=== PATIENT | male | born 1990 ===

== ENCOUNTER 2021-06-18 16:21 | Inpatient (IN) | payer OTHER ==
[2021-06-18] MEDS ORDERED: Sodium Chloride 0.9% 1,000 ML IV ONE ×2 (17:03→19:40)
[2021-06-18] MEDS ORDERED: cefTRIAXone 1 GM in Premix Bag 1 BAG IV ONE (17:07)
[2021-06-18] MEDS ORDERED: Piperacillin/Tazobactam 3.375 GM in Sodium Chloride 0.9% 50 ML IV ONE (17:13)
--- NOTE | 2021-06-18 17:16 | EDM.PDOC ---
ED HPI GENERAL MEDICAL PROBLEM - General Chief Complaint: Lower Extremity Injury/Pain Stated Complaint: SWOLLEN KNEE Time Seen by Provider: 06/18/21 16:23 right knee Pain Score (Numeric/FACES): 7 - Related Data Allergies Allergy/AdvReac Type Severity Reaction Status Date / Time No Known Allergies Allergy Verified 06/18/21 21:56 Home Meds: Home Meds . [No Known Home Meds] 06/18/21 [History] Past Medical History - Past Health History Medical/Surgical History: Denies Medical/Surgical History Review of Systems - Review of Systems Review Of Systems: See Below ED EXAM, GENERAL - Physical Exam Exam: See Below Course - Vital Signs Text/Narrative:: Also evaluated by myself, Dr. Schroeder. Patient with evidence of cellulitis to the right leg. Is warm erythematous tender. 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 This certainly could represent an infected bursitis. When I ranged the knee however, patient has good ability to move and range his knee without significant pain and there is an not high suspicion at this time for septic joint. Last Recorded V/S: Last Vital Signs Temp 36.3 C 06/21/21 03:00 Pulse 71 06/21/21 03:00 Resp 16 06/21/21 03:00 BP 115/60 06/21/21 03:00 Pulse Ox 97 06/21/21 03:00 - Orders/Labs/Meds Orders: Medication Orders Acetaminophen (Acetaminophen 325 Mg Tab) 650 mg PO Q6H PRN PRN Reason: Pain (mild 1-3) Last Admin: 06/19/21 23:50 Dose: 650 mg Documented by: Admin: 06/19/21 11:42 Dose: 650 mg Documented by: Admin: 06/19/21 03:13 Dose: 650 mg Documented by: ENRIQUE Enoxaparin Sodium (Enoxaparin 40 Mg/0.4 Ml Syringe) 40 mg SUBCUT Q24H [facility] Last Admin: 06/20/21 23:34 Dose: 40 mg Documented by: Admin: 06/19/21 23:51 Dose: 40 mg Documented by: Admin: 06/18/21 23:58 Dose: 40 mg Documented by: ENRIQUE Piperacillin Sod/Tazobactam (Sod 3.375 gm/ Sodium Chloride) 50 mls @ 100 mls/hr IV Q6H [facility]BERTO Last Admin: 06/21/21 06:36 Dose: 100 mls/hr Documented by: Infusion: 06/21/21 00:15 Dose: 100 mls/hr Documented by: Admin: 06/20/21 23:45 Dose: 100 mls/hr Documented by: Infusion: 06/20/21 18:46 Dose: 100 mls/hr Documented by: Admin: 06/20/21 18:16 Dose: 100 mls/hr Documented by: Infusion: 06/20/21 11:56 Dose: 100 mls/hr Documented by: Admin: 06/20/21 11:26 Dose: 100 mls/hr Documented by: Infusion: 06/20/21 06:48 Dose: 100 mls/hr Documented by: Admin: 06/20/21 06:18 Dose: 100 mls/hr Documented by: Infusion: 06/20/21 00:24 Dose: 100 mls/hr Documented by: Admin: 06/19/21 23:54 Dose: 100 mls/hr Documented by: Infusion: 06/19/21 18:27 Dose: 100 mls/hr Documented by: Admin: 06/19/21 17:57 Dose: 100 mls/hr Documented by: Infusion: 06/19/21 12:39 Dose: 100 mls/hr Documented by: Admin: 06/19/21 12:09 Dose: 100 mls/hr Documented by: Infusion: 06/19/21 06:01 Dose: 100 mls/hr Documented by: Admin: 06/19/21 05:31 Dose: 100 mls/hr Documented by: Infusion: 06/19/21 00:23 Dose: 100 mls/hr Documented by: Admin: 06/18/21 23:53 Dose: 100 mls/hr Documented by: ENRIQUE Vancomycin HCl 1.25 gm/ Sodium (Chloride) 250 mls @ 250 mls/hr IV Q8H ALBERTO Last Admin: 06/21/21 02:53 Dose: 250 mls/hr Documented by: Infusion: 06/20/21 19:59 Dose: 250 mls/hr Documented by: Admin: 06/20/21 18:59 Dose: 250 mls/hr Documented by: Infusion: 06/20/21 10:52 Dose: 250 mls/hr Documented by: Admin: 06/20/21 09:52 Dose: 250 mls/hr Documented by: Infusion: 06/20/21 03:04 Dose: 250 mls/hr Documented by: Admin: 06/20/21 02:04 Dose: 250 mls/hr Documented by: Infusion: 06/19/21 19:34 Dose: 250 mls/hr Documented by: Admin: 06/19/21 18:34 Dose: 250 mls/hr Documented by: Infusion: 06/19/21 10:54 Dose: 250 mls/hr Documented by: Admin: 06/19/21 09:54 Dose: 250 mls/hr Documented by: VIANEY Oxycodone HCl (Oxycodone 5 Mg Tab) 5 mg PO Q4H PRN PRN Reason: Pain Vancomycin HCl (Pharmacy To Dose - Vancomycin) 1 dose .XX ASDIRECTED [facility] Labs: Laboratory Tests 06/18/21 06/18/21 06/18/21 Range/Units 17:20 17:20 17:20 WBC 12.39 H (4.0-11.0) K/uL RBC 4.95 (4.50-5.90) M/uL Hgb 15.9 (13.0-17.0) g/dL Hct 44.2 (38.0-50.0) % MCV 89.3 (80.0-98.0) fL MCH 32.1 H (27.0-32.0) pg MCHC 36.0 (31.0-37.0) g/dL RDW Std Deviation 39.1 (28.0-62.0) fl RDW Coeff of Talha 12 (11.0-15.0) % Plt Count 145 L (150-400) K/uL MPV 10.80 (7.40-12.00) fL Neut % (Auto) 78.4 (48.0-80.0) % Lymph % (Auto) 12.3 L (16.0-40.0) % [place] % (Auto) 8.6 (0.0-15.0) % Eos % (Auto) 0.5 (0.0-7.0) % Baso % (Auto) 0.2 (0.0-1.5) % Neut # (Auto) 9.7 H (1.4-5.7) K/uL Lymph # (Auto) 1.5 (0.6-2.4) K/uL [place] # (Auto) 1.1 H (0.0-0.8) K/uL Eos # (Auto) 0.1 (0.0-0.7) K/uL Baso # (Auto) 0.0 (0.0-0.1) K/uL Nucleated RBC % 0.0 /100WBC Nucleated RBCs # 0 K/uL ESR 21 H (0-14) mm/hr Sodium 136 (136-148) mmol/L Potassium 4.7 (3.5-5.1) mmol/L Chloride 100 (98-107) mmol/L Carbon Dioxide 27.8 (21.0-32.0) mmol/L BUN 28 H (7.0-18.0) mg/dL Creatinine 0.9 (0.8-1.3) mg/dL Est Cr Clr Drug Dosing 114.00 mL/min Estimated GFR (MDRD) > 60.0 ml/min Glucose 90 (74-106) mg/dL Lactic Acid (0.4-2.0) mmol/L Calcium 9.0 (8.5-10.1) mg/dL Total Bilirubin 0.7 (0.2-1.0) mg/dL AST 29 (15-37) IU/L ALT 34 (14-63) IU/L Alkaline Phosphatase 94 (46-116) U/L C-Reactive Protein 13.80 H (0.00-0.90) mg/dL Total Protein 7.6 (6.4-8.2) g/dL Albumin 3.6 (3.4-5.0) g/dL Globulin 4.0 (2.6-4.0) g/dL Albumin/Globulin Ratio 0.9 (0.9-1.6) SARS-CoV-2 RNA (SHANIQUA) (NEGATIVE) 06/18/21 06/18/21 Range/Units 17:32 18:20 WBC (4.0-11.0) K/uL RBC (4.50-5.90) M/uL Hgb (13.0-17.0) g/dL Hct (38.0-50.0) % MCV (80.0-98.0) fL MCH (27.0-32.0) pg MCHC (31.0-37.0) g/dL RDW Std Deviation (28.0-62.0) fl RDW Coeff of Talha (11.0-15.0) % Plt Count (150-400) K/uL MPV (7.40-12.00) fL Neut % (Auto) (48.0-80.0) % Lymph % (Auto) (16.0-40.0) % [place] % (Auto) (0.0-15.0) % Eos % (Auto) (0.0-7.0) % Baso % (Auto) (0.0-1.5) % Neut # (Auto) (1.4-5.7) K/uL Lymph # (Auto) (0.6-2.4) K/uL [place] # (Auto) (0.0-0.8) K/uL Eos # (Auto) (0.0-0.7) K/uL Baso # (Auto) (0.0-0.1) K/uL Nucleated RBC % /100WBC Nucleated RBCs # K/uL ESR (0-14) mm/hr Sodium (136-148) mmol/L Potassium (3.5-5.1) mmol/L Chloride (98-107) mmol/L Carbon Dioxide (21.0-32.0) mmol/L BUN (7.0-18.0) mg/dL Creatinine (0.8-1.3) mg/dL Est Cr Clr Drug Dosing mL/min Estimated GFR (MDRD) ml/min Glucose (74-106) mg/dL Lactic Acid 0.5 (0.4-2.0) mmol/L Calcium (8.5-10.1) mg/dL Total Bilirubin (0.2-1.0) mg/dL AST (15-37) IU/L ALT (14-63) IU/L Alkaline Phosphatase (46-116) U/L C-Reactive Protein (0.00-0.90) mg/dL Total Protein (6.4-8.2) g/dL Albumin (3.4-5.0) g/dL Globulin (2.6-4.0) g/dL Albumin/Globulin Ratio (0.9-1.6) SARS-CoV-2 RNA (SHANIQUA) NEGATIVE (NEGATIVE) Meds: Medications Generic Name Dose Route Start Last Admin Trade Name Mag PRN Reason Stop Dose Admin Acetaminophen 650 mg 06/18/21 22:22 06/19/21 23:50 Acetaminophen 325 Mg Tab PO 650 mg Q6H PRN Administration Pain (mild 1-3) Enoxaparin Sodium 40 mg 06/18/21 23:45 06/20/21 23:34 Enoxaparin 40 Mg/0.4 Ml Syringe SUBCUT 40 mg Q24H ALBERTO Administration Piperacillin Sod/Tazobactam 50 mls @ 100 mls/hr 06/19/21 00:00 06/21/21 06:36 Sod 3.375 gm/ Sodium Chloride IV 100 mls/hr Q6H ALBERTO Administration Vancomycin HCl 1.25 gm/ Sodium 250 mls @ 250 mls/hr 06/19/21 10:00 06/21/21 02:53 Chloride IV 250 mls/hr Q8H ALBERTO Administration Oxycodone HCl 5 mg 06/18/21 22:21 Oxycodone 5 Mg Tab PO Q4H PRN Pain Vancomycin HCl 1 dose 06/18/21 22:30 Pharmacy To Dose - Vancomycin .XX ASDIRECTED ALBERTO Discontinued Medications Generic Name Dose Route Start Last Admin Trade Name Mag PRN Reason Stop Dose Admin Acetaminophen 1,000 mg 06/18/21 19:29 06/18/21 20:03 Acetaminophen 500 Mg Tab PO 06/18/21 19:30 1,000 mg ONETIME ONE Administration Hydromorphone HCl 0.5 mg 06/18/21 19:29 06/18/21 19:59 Hydromorphone 2 Mg/Ml Syringe IVPUSH 06/18/21 19:30 0.5 mg ONETIME ONE Administration Sodium Chloride 1,000 mls @ 999 mls/hr 06/18/21 17:03 06/18/21 17:09 Normal Saline IV 06/18/21 18:03 999 mls/hr BOLUS ONE Administration Ceftriaxone Sodium/Dextrose 1 50 mls @ 100 mls/hr 06/18/21 17:07 06/18/21 17 :46 gm/ Premix IV 06/18/21 17:36 Not Given ONETIME ONE Piperacillin Sod/Tazobactam 50 mls @ 100 mls/hr 06/18/21 17:13 06/18/21 17:39 Sod 3.375 gm/ Sodium Chloride IV 06/18/21 17:42 100 mls/hr ONETIME ONE Administration Vancomycin HCl 1 gm/ Sodium 250 mls @ 166 mls/hr 06/18/21 17:13 06/18/21 17:39 Chloride IV 06/18/21 18:43 166 mls/hr ONETIME ONE Administration Sodium Chloride 1,000 mls @ 999 mls/hr 06/18/21 19:40 06/18/21 20:04 Normal Saline IV 06/18/21 20:40 999 mls/hr STAT ONE Administration Vancomycin HCl 1.25 gm/ Premix 250 mls @ 250 mls/hr 06/19/21 02:00 06/19/21 03:00 IV 250 mls/hr Q8H ALBERTO Administration Ketorolac Tromethamine 30 mg 06/18/21 19:29 06/18/21 19:56 Ketorolac 30 Mg/Ml Sdv IVPUSH 06/18/21 19:30 30 mg ONETIME ONE Administration Departure - Departure Time of Disposition: 03:00 Disposition: DC/Tfer to Critical Access 66 Clinical Impression: Carbuncle, Folliculitis Cellulitis Qualifiers: Site of cellulitis: extremity Site of cellulitis of extremity: lower extremity Laterality: right Qualified Code(s): L03.115 - Cellulitis of right lower limb - Discharge Information Sepsis Event Note (ED) - Evaluation Sepsis Screening Result: No Definite Risk MLP Sign Off - Signature Requirements MLP Sign Off: Yes
[2021-06-18 17:51] LABS: BLOOD UREA NITROGEN,BUN 28 mg/dL (7.0-18.0); CARBON DIOXIDE,CO2 27.8 mmol/L (21.0-32.0); CHLORIDE,CL 100 mmol/L (98-107); GLUCOSE RANDOM 90 mg/dL (74-106); POTASSIUM,K 4.7 mmol/L (3.5-5.1); SODIUM,NA 136 mmol/L (136-148)
--- NOTE | 2021-06-18 18:27 | CR ---
INDICATION: Right knee infection TECHNIQUE: Knee radiograph 3 views right COMPARISON: None FINDINGS: Bone: No acute fractures or aggressive bone lesions are identified. No evidence of osteomyelitis is seen. Joint: The joint spaces of the medial, lateral, and patellofemoral compartments are unremarkable. No significant knee effusion is seen. Soft tissue: Moderate to severe soft tissue swelling seen in the anterior knee. No radiopaque foreign bodies are seen. IMPRESSIONS: 1. No acute osseous injuries or abnormalities are noted. 2. No evidence of osteomyelitis is seen. If there is a high clinical index of suspicion, further evaluation with contrast-enhanced MRI or dual-isotope bone scan is recommended, given their higher sensitivities. Dictated by Otto Hendrix MD @ 06/18/2021 6:26:07 PM Dictated by: Otto Hendrix MD @ 06/18/2021 18:26:11 (Electronically Signed)
[2021-06-18] MEDS ORDERED: HYDROmorphone 2 MG/ML Syringe IVPUSH ONE (19:29)
[2021-06-18] MEDS ORDERED: Acetaminophen 500 MG Tab PO ONE (19:29)
[2021-06-18] MEDS ORDERED: Ketorolac 30 MG/ML SDV IVPUSH ONE (19:29)
--- NOTE | 2021-06-18 21:21 | EDM.PDOC ---
ED HPI GENERAL MEDICAL PROBLEM - General Chief Complaint: Lower Extremity Injury/Pain Stated Complaint: SWOLLEN KNEE Time Seen by Provider: 06/18/21 16:23 Source of Information: Reports: Patient History Limitations: Reports: No Limitations - History of Present Illness INITIAL COMMENTS - FREE TEXT/NARRATIVE: HISTORY AND PHYSICAL: History of present illness: Patient is a 30-year-old male who presents emergency room today from the walk-in clinic for concern of infection of his lower extremity. Patient states that he first started noticing 2 "spider bites "just above his knee approximately 6 days ago. Patient states the following day, he started noticing redness surrounding these areas and since then the infection has worsened. Patient states that he went to the walk-in clinic today thinking he would get antibiotics and go home but was instructed to come to the emergency room to the extent of his infection. Patient states that he has had multiple areas of similar bug bites in the past that have gone away without becoming worse but this 1 began getting worse. Patient states that he is now having difficulties walking as he has pain with bending his right knee. Patient denies any trauma or injury to the knee or any other resuscitative symptoms. Patient denies fever, chills, chest pain, shortness of breath, or cough. Denies headache, neck stiff ness, change in vision, syncope, or near syncope. Denies nausea, vomiting, abdominal pain, diarrhea, constipation, or dysuria. Has not noted any blood in urine or stool. Patient has been eating and drinking appropr iately. Review of systems: As per history of present illness and below otherwise all systems reviewed and negative. Past medical history: As per history of present illness and as reviewed below otherwise noncontributory. Surgical history: As per history of present illness and as reviewed below otherwise noncontributory. Social history: See social history for further information Family history: As per history of present illness and as reviewed below otherwise noncontributory. Physical exam: General: Patient is alert, oriented, and in no acute distress. Patient sitting comfortably on exam table. Vitals stable and reviewed by me. HEENT: Atraumatic, normocephalic, pupils equal and reactive bilaterally, negative for conjunctival pallor or scleral icterus, mucous membranes moist, TMs normal bilaterally, throat clear, neck supple, nontender, trachea midline. No drooling or trismus noted. No meningeal signs. No hot potato voice noted. Lungs: Clear to auscultation, breath sounds equal bilaterally, chest nontender. Heart: S1S2, regular rate and rhythm without overt murmur Abdomen: Soft, nondistended, nontender. Negative for masses or hepatosplenomegaly. Negative for costovertebral tenderness. Pelvis: Stable nontender. Genitourinary: Deferred. Rectal: Deferred. Skin: Intact, warm, dry. No lesions or rashes noted. Extremities: The patient does have a carbuncle noted just superior to the right knee with draining a small amount of serosanguineous fluid/possible bursitis of the right knee with extensive surrounding cellulitis of the knee with moderate edema surrounding the area of cellulitis. Patient does have significant pain with active range of motion of the right knee but does not have pain with passive range of motion of the right knee until the area of cellulitis/carbuncle begins to become flexed. Dorsalis pedis and posterior tibial pulses are grossly intact of the right lower extremity with capillary refill less than 2 seconds. Intact sensation to light and deep touch of the complete right lower extremity. There is also a small area of folliculitis just superior to the area of cellulitis. Otherwise, atraumatic, negative for cords or calf pain. Neurovas cular unremarkable. Neuro: Awake, alert, oriented. Cranial nerves II through XII unremarkable. Cerebellum unremarkable. Motor and sensory unremarkable throughout. Exam nonfocal. Notes: Patient is a 30-year-old male who presents emergency room secondary to right lower extremity infection x5 days. Upon arrival to the ED, patient is vitally stable and well-appearing on exam. On exam, patient does have a carbuncle noted just superior to the right knee/possible bursitis of right knee with extensive surrounding cellulitis. There is moderate edema surrounding the area of cellulitis. Patient does have significant pain with active range of motion of the right knee but does not have pain with passive range of motion of the right knee until the area of cellulitis begins to be flexed. Dr. Schroeder and Dr. Yee at bedside and agreeable that no concern for underlying septic arthritis. Will obtain IV access, initiate fluid bolus, start IV antibiotics, pain medication and reassess patient. CBC shows a leukocytosis of 12.39, thrombocytopenia of 145, ESR mildly elevated at 21. Otherwise mild derangements of CBC unremarkable. CMP shows an isolated elevation of BUN at 28, lactate is within normal limits, CRP elevated at 13.8, otherwise CMP unremarkable. COVID-19 negative. Knee x-ray shows no acute osseous injuries or abnormalities noted. No evidence of osteomyelitis seen. Bedside ultrasound shows no fluid collection or underlying abscess as confirmed with Dr. Schroeder. Upon reevaluation of patient, he has now developed a fever of 101.5. Otherwise vitally stable and not tachycardic. Will complete a 20-30 cc bolus of normal saline, provide a dose of Tylenol for fever. I did call and speak to the hospitalist on-call, Dr. Brennan, and thoroughly discussed patient's case. Will admit to inpatient to Dr. Brennan. Voices understanding and is agreeable to plan of care. Denies any further questions or concerns at this time. Diagnostics: CBC, CMP, blood cultures x2, lactate, knee x-ray, ESR, CRP, COVID-19 Therapeutics: Normal saline bolus x2, vancomycin IV, Zosyn IV, morphine, Toradol, Tylenol Impression: Cellulitis of right lower extremity Carbuncle right lower extremity Folliculitis, right lower extremity Plan: Admit inpatient to Dr. Brennan Definitive disposition and diagnosis as appropriate pending reevaluation and review of above. right knee Pain Score (Numeric/FACES): 7 - Related Data Allergies Allergy/AdvReac Type Severity Reaction Status Date / Time No Known Allergies Allergy Verified 06/18/21 16:54 Home Meds: Home Meds . [No Known Home Meds] 06/18/21 [History] Past Medical History - Past Health History Medical/Surgical History: Denies Medical/Surgical History ED ROS GENERAL - Review of Systems Review Of Systems: Comprehensive ROS is negative, except as noted in HPI. ED EXAM, GENERAL - Physical Exam Exam: See Below (see dictation) Course - Vital Signs Last Recorded V/S: Last Vital Signs Temp 97.3 F 06/18/21 16:54 Pulse 88 06/18/21 18:39 Resp 20 06/18/21 18:39 BP 132/78 06/18/21 18:39 Pulse Ox 99 06/18/21 18:39 - Orders/Labs/Meds Orders: Active Orders 24 hr Category Date Time Status CULTURE BLOOD [BC] Stat Lab 06/18/21 17:20 Received CULTURE BLOOD [BC] Stat Lab 06/18/21 17:32 Received MISCELLANEOUS CULT [MREF] Stat Lab 06/18/21 17:20 Received Blood Culture x2 Reflex Set [OM.PC] Stat Oth 06/18/21 17:04 Ordered Labs: Laboratory Tests 06/18/21 06/18/21 06/18/21 Range/Units 17:20 17:20 17:20 WBC 12.39 H (4.0-11.0) K/uL RBC 4.95 (4.50-5.90) M/uL Hgb 15.9 (13.0-17.0) g/dL Hct 44.2 (38.0-50.0) % MCV 89.3 (80.0-98.0) fL MCH 32.1 H (27.0-32.0) pg MCHC 36.0 (31.0-37.0) g/dL RDW Std Deviation 39.1 (28.0-62.0) fl RDW Coeff of Talha 12 (11.0-15.0) % Plt Count 145 L (150-400) K/uL MPV 10.80 (7.40-12.00) fL Neut % (Auto) 78.4 (48.0-80.0) % Lymph % (Auto) 12.3 L (16.0-40.0) % [place] % (Auto) 8.6 (0.0-15.0) % Eos % (Auto) 0.5 (0.0-7.0) % Baso % (Auto) 0.2 (0.0-1.5) % Neut # (Auto) 9.7 H (1.4-5.7) K/uL Lymph # (Auto) 1.5 (0.6-2.4) K/uL [place] # (Auto) 1.1 H (0.0-0.8) K/uL Eos # (Auto) 0.1 (0.0-0.7) K/uL Baso # (Auto) 0.0 (0.0-0.1) K/uL Nucleated RBC % 0.0 /100WBC Nucleated RBCs # 0 K/uL ESR 21 H (0-14) mm/hr Sodium 136 (136-148) mmol/L Potassium 4.7 (3.5-5.1) mmol/L Chloride 100 (98-107) mmol/L Carbon Dioxide 27.8 (21.0-32.0) mmol/L BUN 28 H (7.0-18.0) mg/dL Creatinine 0.9 (0.8-1.3) mg/dL Est Cr Clr Drug Dosing 114.00 mL/min Estimated GFR (MDRD) > 60.0 ml/min Glucose 90 (74-106) mg/dL Lactic Acid (0.4-2.0) mmol/L Calcium 9.0 (8.5-10.1) mg/dL Total Bilirubin 0.7 (0.2-1.0) mg/dL AST 29 (15-37) IU/L ALT 34 (14-63) IU/L Alkaline Phosphatase 94 (46-116) U/L C-Reactive Protein 13.80 H (0.00-0.90) mg/dL Total Protein 7.6 (6.4-8.2) g/dL Albumin 3.6 (3.4-5.0) g/dL Globulin 4.0 (2.6-4.0) g/dL Albumin/Globulin Ratio 0.9 (0.9-1.6) SARS-CoV-2 RNA (SHANIQUA) (NEGATIVE) 06/18/21 06/18/21 Range/Units 17:32 18:20 WBC (4.0-11.0) K/uL RBC (4.50-5.90) M/uL Hgb (13.0-17.0) g/dL Hct (38.0-50.0) % MCV (80.0-98.0) fL MCH (27.0-32.0) pg MCHC (31.0-37.0) g/dL RDW Std Deviation (28.0-62.0) fl RDW Coeff of Talha (11.0-15.0) % Plt Count (150-400) K/uL MPV (7.40-12.00) fL Neut % (Auto) (48.0-80.0) % Lymph % (Auto) (16.0-40.0) % [place] % (Auto) (0.0-15.0) % Eos % (Auto) (0.0-7.0) % Baso % (Auto) (0.0-1.5) % Neut # (Auto) (1.4-5.7) K/uL Lymph # (Auto) (0.6-2.4) K/uL [place] # (Auto) (0.0-0.8) K/uL Eos # (Auto) (0.0-0.7) K/uL Baso # (Auto) (0.0-0.1) K/uL Nucleated RBC % /100WBC Nucleated RBCs # K/uL ESR (0-14) mm/hr Sodium (136-148) mmol/L Potassium (3.5-5.1) mmol/L Chloride (98-107) mmol/L Carbon Dioxide (21.0-32.0) mmol/L BUN (7.0-18.0) mg/dL Creatinine (0.8-1.3) mg/dL Est Cr Clr Drug Dosing mL/min Estimated GFR (MDRD) ml/min Glucose (74-106) mg/dL Lactic Acid 0.5 (0.4-2.0) mmol/L Calcium (8.5-10.1) mg/dL Total Bilirubin (0.2-1.0) mg/dL AST (15-37) IU/L ALT (14-63) IU/L Alkaline Phosphatase (46-116) U/L C-Reactive Protein (0.00-0.90) mg/dL Total Protein (6.4-8.2) g/dL Albumin (3.4-5.0) g/dL Globulin (2.6-4.0) g/dL Albumin/Globulin Ratio (0.9-1.6) SARS-CoV-2 RNA (SHANIQUA) NEGATIVE (NEGATIVE) Meds: Medications Discontinued Medications Generic Name Dose Route Start Last Admin Trade Name Freq PRN Reason Stop Dose Admin Acetaminophen 1,000 mg 06/18/21 19:29 06/18/21 20:03 Acetaminophen 500 Mg Tab PO 06/18/21 19:30 1,000 mg ONETIME ONE Administration Hydromorphone HCl 0.5 mg 06/18/21 19:29 06/18/21 19:59 Hydromorphone 2 Mg/Ml Syringe IVPUSH 06/18/21 19:30 0.5 mg ONETIME ONE Administration Sodium Chloride 1,000 mls @ 999 mls/hr 06/18/21 17:03 06/18/21 17:09 Normal Saline IV 06/18/21 18:03 999 mls/hr BOLUS ONE Administration Ceftriaxone Sodium/Dextrose 1 50 mls @ 100 mls/hr 06/18/21 17:07 06/18/21 17:46 gm/ Premix IV 06/18/21 17:36 Not Given ONETIME ONE Piperacillin Sod/Tazobactam 50 mls @ 100 mls/hr 06/18/21 17:13 06/18/21 17:39 Sod 3.375 gm/ Sodium Chloride IV 06/18/21 17:42 100 mls/hr ONETIME ONE Administration Vancomycin HCl 1 gm/ Sodium 250 mls @ 166 mls/hr 06/18/21 17:13 06/18/21 17:39 Chloride IV 06/18/21 18:43 166 mls/hr ONETIME ONE Administration Sodium Chloride 1,000 mls @ 999 mls/hr 06/18/21 19:40 06/18/21 20:04 Normal Saline IV 06/18/21 20:40 999 mls/hr STAT ONE Administration Ketorolac Tromethamine 30 mg 06/18/21 19:29 06/18/21 19:56 Ketorolac 30 Mg/Ml Sdv IVPUSH 06/18/21 19:30 30 mg ONETIME ONE Administration Departure - Departure Time of Disposition: 21:11 Disposition: Admitted As Inpatient 64 Clinical Impression: Carbuncle, Folliculitis Cellulitis Qualifiers: Site of cellulitis: extremity Site of cellulitis of extremity: lower extremity Laterality: right Qualified Code(s): L03.115 - Cellulitis of right lower limb - Discharge Information Sepsis Event Note (ED) - Evaluation Sepsis Screening Result: No Definite Risk - Focused Exam Vital Signs: Vital Signs Temp Pulse Resp BP Pulse Ox 06/18/21 18:39 88 20 132/78 99 06/18/21 18:00 82 20 130/90 99 06/18/21 17:30 89 20 134/78 99 06/18/21 16:54 97.3 F 88 18 138/85 97 - My Orders Last 24 Hours: My Active Orders 06/18/21 17:04 Blood Culture x2 Reflex Set [OM.PC] Stat 06/18/21 17:20 CULTURE BLOOD [BC] Stat MISCELLANEOUS CULT [MREF] Stat 06/18/21 17:32 CULTURE BLOOD [BC] Stat - Assessment/Plan Last 24 Hours: My Active Orders 06/18/21 17:04 Blood Culture x2 Reflex Set [OM.PC] Stat 06/18/21 17:20 CULTURE BLOOD [BC] Stat MISCELLANEOUS CULT [MREF] Stat 06/18/21 17:32 CULTURE BLOOD [BC] Stat
[2021-06-18] MEDS ORDERED: oxyCODONE 5 MG Tab PO PRN (22:21)
--- NOTE | 2021-06-18 23:36 | PCM.HP.2 ---
H&P History of Present Illness - General Date of Service: 06/18/21 Admit Problem/Dx: Admission Diagnosis/Problem Admission Diagnosis/Problem Cellulitis - History of Present Illness Initial Comments - Free Text/Narative: 30 yo male who presents to the ED with rash on his knee. His rash started seven days ago. It started above his knee and has since spread all the way around his knee and down his lower leg. He reports some clear dranaing from a wound above his knee. He denies any fevers, knee pain, or chills. right knee Pain Score (Numeric/FACES): 7 - Related Data Allergies/Adverse Reactions: Allergies Allergy/AdvReac Type Severity Reaction Status Date / Time No Known Allergies Allergy Verified 06/18/21 21:56 Home Medications: Home Meds . [No Known Home Meds] 06/18/21 [History] Past Medical History - Past Health History Medical/Surgical History: Denies Medical/Surgical History Social & Family History - Tobacco Use Tobacco Use Status *Q: Never Tobacco User - Caffeine Use Caffeine Use: Reports: Coffee, Energy Drinks - Recreational Drug Use Recreational Drug Use: No H&P Review of Systems - Review of Systems: Review Of Systems: Comprehensive ROS is negative, except as noted in HPI. Exam - Exam Exam: See Below - Vital Signs Vital Signs: Last Vital Signs Temp 37.1 C 06/18/21 21:36 Pulse 87 06/18/21 21:36 Resp 16 06/18/21 21:36 BP 134/74 06/18/21 21:36 Pulse Ox 97 06/18/21 21:36 Weight: 78.426 kg - Exam General: Alert, Oriented HEENT: Mucosa Moist & [place] Neck: Supple Lungs: Clear to Auscultation, Normal Respiratory Effort Cardiovascular: Regular Rate, Regular Rhythm GI/Abdominal Exam: Normal Bowel Sounds, Soft, Non-Tender Extremities: Normal Range of Motion, No Pedal Edema, Other (erythema and edema souronding righ knee, no effusion noted, yellow crusted lesion above knee. and satalite lession on upper thigh) - Patient Data Lab Results Last 24 hrs: Laboratory Results - last 24 hr 06/18/21 06/18/21 06/18/21 Range/Units 17:20 17:20 17:20 WBC 12.39 H (4.0-11.0) K/uL RBC 4.95 (4.50-5.90) M/uL Hgb 15.9 (13.0-17.0) g/dL Hct 44.2 (38.0-50.0) % MCV 89.3 (80.0-98.0) fL MCH 32.1 H (27.0-32.0) pg MCHC 36.0 (31.0-37.0) g/dL RDW Std Deviation 39.1 (28.0-62.0) fl RDW Coeff of Talha 12 (11.0-15.0) % Plt Count 145 L (150-400) K/uL MPV 10.80 (7.40-12.00) fL Neut % (Auto) 78.4 (48.0-80.0) % Lymph % (Auto) 12.3 L (16.0-40.0) % [place] % (Auto) 8.6 (0.0-15.0) % Eos % (Auto) 0.5 (0.0-7.0) % Baso % (Auto) 0.2 (0.0-1.5) % Neut # (Auto) 9.7 H (1.4-5.7) K/uL Lymph # (Auto) 1.5 (0.6-2.4) K/uL [place] # (Auto) 1.1 H (0.0-0.8) K/uL Eos # (Auto) 0.1 (0.0-0.7) K/uL Baso # (Auto) 0.0 (0.0-0.1) K/uL Nucleated RBC % 0.0 /100WBC Nucleated RBCs # 0 K/uL ESR 21 H (0-14) mm/hr Sodium 136 (136-148) mmol/L Potassium 4.7 (3.5-5.1) mmol/L Chloride 100 (98-107) mmol/L Carbon Dioxide 27.8 (21.0-32.0) mmol/L BUN 28 H (7.0-18.0) mg/dL Creatinine 0.9 (0.8-1.3) mg/dL Est Cr Clr Drug Dosing 114.00 mL/min Estimated GFR (MDRD) > 60.0 ml/min Glucose 90 (74-106) mg/dL Lactic Acid (0.4-2.0) mmol/L Calcium 9.0 (8.5-10.1) mg/dL Total Bilirubin 0.7 (0.2-1.0) mg/dL AST 29 (15-37) IU/L ALT 34 (14-63) IU/L Alkaline Phosphatase 94 (46-116) U/L C-Reactive Protein 13.80 H (0.00-0.90) mg/dL Total Protein 7.6 (6.4-8.2) g/dL Albumin 3.6 (3.4-5.0) g/dL Globulin 4.0 (2.6-4.0) g/dL Albumin/Globulin Ratio 0.9 (0.9-1.6) SARS-CoV-2 RNA (SHANIQUA) (NEGATIVE) 06/18/21 06/18/21 Range/Units 17:32 18:20 WBC (4.0-11.0) K/uL RBC (4.50-5.90) M/uL Hgb (13.0-17.0) g/dL Hct (38.0-50.0) % MCV (80.0-98.0) fL MCH (27.0-32.0) pg MCHC (31.0-37.0) g/dL RDW Std Deviation (28.0-62.0) fl RDW Coeff of Talha (11.0-15.0) % Plt Count (150-400) K/uL MPV (7.40-12.00) fL Neut % (Auto) (48.0-80.0) % Lymph % (Auto) (16.0-40.0) % [place] % (Auto) (0.0-15.0) % Eos % (Auto) (0.0-7.0) % Baso % (Auto) (0.0-1.5) % Neut # (Auto) (1.4-5.7) K/uL Lymph # (Auto) (0.6-2.4) K/uL [place] # (Auto) (0.0-0.8) K/uL Eos # (Auto) (0.0-0.7) K/uL Baso # (Auto) (0.0-0.1) K/uL Nucleated RBC % /100WBC Nucleated RBCs # K/uL ESR (0-14) mm/hr Sodium (136-148) mmol/L Potassium (3.5-5.1) mmol/L Chloride (98-107) mmol/L Carbon Dioxide (21.0-32.0) mmol/L BUN (7.0-18.0) mg/dL Creatinine (0.8-1.3) mg/dL Est Cr Clr Drug Dosing mL/min Estimated GFR (MDRD) ml/min Glucose (74-106) mg/dL Lactic Acid 0.5 (0.4-2.0) mmol/L Calcium (8.5-10.1) mg/dL Total Bilirubin (0.2-1.0) mg/dL AST (15-37) IU/L ALT (14-63) IU/L Alkaline Phosphatase (46-116) U/L C-Reactive Protein (0.00-0.90) mg/dL Total Protein (6.4-8.2) g/dL Albumin (3.4-5.0) g/dL Globulin (2.6-4.0) g/dL Albumin/Globulin Ratio (0.9-1.6) SARS-CoV-2 RNA (SHANIQUA) NEGATIVE (NEGATIVE) Result Diagrams: 06/20/21 06:46 06/20/21 06:46 Sepsis Event Note - Evaluation Sepsis Screening Result: Possible Sepsis Risk - Focused Exam Vital Signs: Vital Signs Temp Pulse Resp BP Pulse Ox 06/18/21 21:36 37.1 C 87 16 134/74 97 06/18/21 18:39 88 20 132/78 99 06/18/21 18:00 82 20 130/90 99 06/18/21 17:30 89 20 134/78 99 06/18/21 16:54 36.3 C 88 18 138/85 97 Problem List Initiated/Reviewed/Updated: Yes Orders Last 24hrs: Active Orders 24 hr Category Date Time Status Admission Status [Patient Status] [ADT] Stat ADT 06/18/21 20:12 Active Vital Signs [RC] Q4H Care 06/18/21 22:23 Active Regular Diet [DIET] Diet 06/19/21 Breakfast Active CULTURE BLOOD [BC] Stat Lab 06/18/21 17:20 Received CULTURE BLOOD [BC] Stat Lab 06/18/21 17:32 Received MISCELLANEOUS CULT [MREF] Stat Lab 06/18/21 17:20 Received VANCOMYCIN TROUGH [CHEM] Timed Lab 06/20/21 01:00 Ordered Acetaminophen [TylenoL] Med 06/18/21 22:22 Active 650 mg PO Q6H PRN Pharmacy to Dose - Vancomycin Med 06/18/21 22:30 Pending 1 dose .XX ASDIRECTED Piperacillin/Tazobactam [Piperacil-Tazobact] 3.375 gm Med 06/19/21 00:00 Active Sodium Chloride 0.9% [Normal Saline] 50 ml IV Q6H VANCOmycin 1.25 GM/250 ML 1.25 gm Med 06/19/21 02:00 Active Premix Bag 1 bag IV Q8H oxyCODONE Med 06/18/21 22:21 Active 5 mg PO Q4H PRN Blood Culture x2 Reflex Set [OM.PC] Stat Oth 06/18/21 17:04 Ordered Medication Orders Acetaminophen (Acetaminophen 325 Mg Tab) 650 mg PO Q6H PRN PRN Reason: Pain (mild 1-3) Piperacillin Sod/Tazobactam (Sod 3.375 gm/ Sodium Chloride) 50 mls @ 100 mls/hr IV Q6H [facility] Vancomycin HCl 1.25 gm/ Premix 250 mls @ 250 mls/hr IV Q8H [facility] Oxycodone HCl (Oxycodone 5 Mg Tab) 5 mg PO Q4H PRN PRN Reason: Pain Vancomycin HCl (Pharmacy To Dose - Vancomycin) 1 dose .XX ASDIRECTED [facility] Assessment/Plan Comment:: 30 yo male admitted for right lower leg cellulitis. We will treat with IV antibiotics.
[2021-06-18] MEDS: Piperacillin/Tazobactam 3.375 GM in Sodium Chloride 0.9% 50 ML IV SCH (23:53)
[2021-06-18] MEDS: Enoxaparin 40 MG/0.4 ML Syringe SUBCUT SCH (23:58)
[2021-06-19] MEDS ORDERED: VANCOmycin 1.25 GM/250 ML 1.25 GM in Premix Bag 1 BAG IV SCH (02:00)
[2021-06-19] MEDS: Acetaminophen 325 MG Tab PO PRN ×3 (03:13→23:50)
[2021-06-19] MEDS: Piperacillin/Tazobactam 3.375 GM in Sodium Chloride 0.9% 50 ML IV SCH ×4 (05:31→23:54)
[2021-06-19 08:19] LABS: BLOOD UREA NITROGEN,BUN 18 mg/dL (7.0-18.0); CARBON DIOXIDE,CO2 27.6 mmol/L (21.0-32.0); CHLORIDE,CL 103 mmol/L (98-107); GLUCOSE RANDOM 88 mg/dL (74-106); POTASSIUM,K 4.1 mmol/L (3.5-5.1); SODIUM,NA 136 mmol/L (136-148)
--- NOTE | 2021-06-19 14:59 | PCM.PN ---
- General Info Date of Service: 06/19/21 - Review of Systems Systems Review Comment:: reports some clear drainage comming from wound above knee, no area of fluctance, mild improvement in swelling and redness, no fever, no joint pain. - Patient Data Vitals - Most Recent: Last Vital Signs Temp 36.8 C 06/19/21 12:00 Pulse 80 06/19/21 12:00 Resp 16 06/19/21 12:00 BP 115/59 L 06/19/21 12:00 Pulse Ox 98 06/19/21 12:00 Weight - Most Recent: 78.426 kg I&O - Last 24 Hours: Intake & Output 06/18/21 06/19/21 06/19/21 22:59 06:59 14:59 Intake Total 990 Output Total 380 Balance 610 Lab Results Last 24 Hours: Laboratory Results - last 24 hr 06/18/21 06/18/21 06/18/21 Range/Units 17:20 17:20 17:20 WBC 12.39 H (4.0-11.0) K/uL RBC 4.95 (4.50-5.90) M/uL Hgb 15.9 (13.0-17.0) g/dL Hct 44.2 (38.0-50.0) % MCV 89.3 (80.0-98.0) fL MCH 32.1 H (27.0-32.0) pg MCHC 36.0 (31.0-37.0) g/dL RDW Std Deviation 39.1 (28.0-62.0) fl RDW Coeff of Talha 12 (11.0-15.0) % Plt Count 145 L (150-400) K/uL MPV 10.80 (7.40-12.00) fL Neut % (Auto) 78.4 (48.0-80.0) % Lymph % (Auto) 12.3 L (16.0-40.0) % [place] % (Auto) 8.6 (0.0-15.0) % Eos % (Auto) 0.5 (0.0-7.0) % Baso % (Auto) 0.2 (0.0-1.5) % Neut # (Auto) 9.7 H (1.4-5.7) K/uL Lymph # (Auto) 1.5 (0.6-2.4) K/uL [place] # (Auto) 1.1 H (0.0-0.8) K/uL Eos # (Auto) 0.1 (0.0-0.7) K/uL Baso # (Auto) 0.0 (0.0-0.1) K/uL Nucleated RBC % 0.0 /100WBC Nucleated RBCs # 0 K/uL ESR 21 H (0-14) mm/hr Sodium 136 (136-148) mmol/L Potassium 4.7 (3.5-5.1) mmol/L Chloride 100 (98-107) mmol/L Carbon Dioxide 27.8 (21.0-32.0) mmol/L BUN 28 H (7.0-18.0) mg/dL Creatinine 0.9 (0.8-1.3) mg/dL Est Cr Clr Drug Dosing 114.00 mL/min Estimated GFR (MDRD) > 60.0 ml/min Glucose 90 (74-106) mg/dL Lactic Acid (0.4-2.0) mmol/L Calcium 9.0 (8.5-10.1) mg/dL Total Bilirubin 0.7 (0.2-1.0) mg/dL AST 29 (15-37) IU/L ALT 34 (14-63) IU/L Alkaline Phosphatase 94 (46-116) U/L C-Reactive Protein 13.80 H (0.00-0.90) mg/dL Total Protein 7.6 (6.4-8.2) g/dL Albumin 3.6 (3.4-5.0) g/dL Globulin 4.0 (2.6-4.0) g/dL Albumin/Globulin Ratio 0.9 (0.9-1.6) SARS-CoV-2 RNA (SHANIQUA) (NEGATIVE) 06/18/21 06/18/21 06/19/21 Range/Units 17:32 18:20 07:32 WBC 11.35 H (4.0-11.0) K/uL RBC 4.33 L (4.50-5.90) M/uL Hgb 13.6 (13.0-17.0) g/dL Hct 39.1 (38.0-50.0) % MCV 90.3 (80.0-98.0) fL MCH 31.4 (27.0-32.0) pg MCHC 34.8 (31.0-37.0) g/dL RDW Std Deviation 40.6 (28.0-62.0) fl RDW Coeff of Talha 12 (11.0-15.0) % Plt Count 141 L (150-400) K/uL MPV 10.50 (7.40-12.00) fL Neut % (Auto) 75.9 (48.0-80.0) % Lymph % (Auto) 15.1 L (16.0-40.0) % [place] % (Auto) 7.9 (0.0-15.0) % Eos % (Auto) 1.0 (0.0-7.0) % Baso % (Auto) 0.1 (0.0-1.5) % Neut # (Auto) 8.6 H (1.4-5.7) K/uL Lymph # (Auto) 1.7 (0.6-2.4) K/uL [place] # (Auto) 0.9 H (0.0-0.8) K/uL Eos # (Auto) 0.1 (0.0-0.7) K/uL Baso # (Auto) 0.0 (0.0-0.1) K/uL Nucleated RBC % 0.0 /100WBC Nucleated RBCs # 0 K/uL ESR (0-14) mm/hr Sodium (136-148) mmol/L Potassium (3.5-5.1) mmol/L Chloride (98-107) mmol/L Carbon Dioxide (21.0-32.0) mmol/L BUN (7.0-18.0) mg/dL Creatinine (0.8-1.3) mg/dL Est Cr Clr Drug Dosing mL/min Estimated GFR (MDRD) ml/min Glucose (74-106) mg/dL Lactic Acid 0.5 (0.4-2.0) mmol/L Calcium (8.5-10.1) mg/dL Total Bilirubin (0.2-1.0) mg/dL AST (15-37) IU/L ALT (14-63) IU/L Alkaline Phosphatase (46-116) U/L C-Reactive Protein (0.00-0.90) mg/dL Total Protein (6.4-8.2) g/dL Albumin (3.4-5.0) g/dL Globulin (2.6-4.0) g/dL Albumin/Globulin Ratio (0.9-1.6) SARS-CoV-2 RNA (SHANIQUA) NEGATIVE (NEGATIVE) 06/19/21 Range/Units 07:32 WBC (4.0-11.0) K/uL RBC (4.50-5.90) M/uL Hgb (13.0-17.0) g/dL Hct (38.0-50.0) % MCV (80.0-98.0) fL MCH (27.0-32.0) pg MCHC (31.0-37.0) g/dL RDW Std Deviation (28.0-62.0) fl RDW Coeff of Talha (11.0-15.0) % Plt Count (150-400) K/uL MPV (7.40-12.00) fL Neut % (Auto) (48.0-80.0) % Lymph % (Auto) (16.0-40.0) % [place] % (Auto) (0.0-15.0) % Eos % (Auto) (0.0-7.0) % Baso % (Auto) (0.0-1.5) % Neut # (Auto) (1.4-5.7) K/uL Lymph # (Auto) (0.6-2.4) K/uL [place] # (Auto) (0.0-0.8) K/uL Eos # (Auto) (0.0-0.7) K/uL Baso # (Auto) (0.0-0.1) K/uL Nucleated RBC % /100WBC Nucleated RBCs # K/uL ESR (0-14) mm/hr Sodium 136 (136-148) mmol/L Potassium 4.1 (3.5-5.1) mmol/L Chloride 103 (98-107) mmol/L Carbon Dioxide 27.6 (21.0-32.0) mmol/L BUN 18 (7.0-18.0) mg/dL Creatinine 0.9 (0.8-1.3) mg/dL Est Cr Clr Drug Dosing 106.33 mL/min Estimated GFR (MDRD) > 60.0 ml/min Glucose 88 (74-106) mg/dL Lactic Acid (0.4-2.0) mmol/L Calcium 8.1 L (8.5-10.1) mg/dL Total Bilirubin (0.2-1.0) mg/dL AST (15-37) IU/L ALT (14-63) IU/L Alkaline Phosphatase (46-116) U/L C-Reactive Protein (0.00-0.90) mg/dL Total Protein (6.4-8.2) g/dL Albumin (3.4-5.0) g/dL Globulin (2.6-4.0) g/dL Albumin/Globulin Ratio (0.9-1.6) SARS-CoV-2 RNA (SHANIQUA) (NEGATIVE) Med Orders - Current: Current Medications Acetaminophen (Acetaminophen 325 Mg Tab) 650 mg PO Q6H PRN PRN Reason: Pain (mild 1-3) Last Admin: 06/19/21 11:42 Dose: 650 mg Documented by: Enoxaparin Sodium (Enoxaparin 40 Mg/0.4 Ml Syringe) 40 mg SUBCUT Q24H [facility] [place] Last Admin: 06/18/21 23:58 Dose: 40 mg Documented by: Piperacillin Sod/Tazobactam (Sod 3.375 gm/ Sodium Chloride) 50 mls @ 100 mls/hr IV Q6H [facility] [place] Last Admin: 06/19/21 12:09 Dose: 100 mls/hr Documented by: Vancomycin HCl 1.25 gm/ Sodium (Chloride) 250 mls @ 250 mls/hr IV Q8H [facility] [place] Last Admin: 06/19/21 09:54 Dose: 250 mls/hr Documented by: Oxycodone HCl (Oxycodone 5 Mg Tab) 5 mg PO Q4H PRN PRN Reason: Pain Vancomycin HCl (Pharmacy To Dose - Vancomycin) 1 dose .XX ASDIRECTED [facility] [place] Discontinued Medications Acetaminophen (Acetaminophen 500 Mg Tab) 1,000 mg PO ONETIME ONE Stop: 06/18/21 19:30 Last Admin: 06/18/21 20:03 Dose: 1,000 mg Documented by: Hydromorphone HCl (Hydromorphone 2 Mg/Ml Syringe) 0.5 mg IVPUSH ONETIME ONE Stop: 06/18/21 19:30 Last Admin: 06/18/21 19:59 Dose: 0.5 mg Documented by: Sodium Chloride (Normal Saline) 1,000 mls @ 999 mls/hr IV BOLUS ONE Stop: 06/18/21 18:03 Last Admin: 06/18/21 17:09 Dose: 999 mls/hr Documented by: Ceftriaxone Sodium/Dextrose 1 (gm/ Premix) 50 mls @ 100 mls/hr IV ONETIME ONE Stop: 06/18/21 17:36 Last Admin: 06/18/21 17:46 Dose: Not Given Documented by: Piperacillin Sod/Tazobactam (Sod 3.375 gm/ Sodium Chloride) 50 mls @ 100 mls/hr IV ONETIME ONE Stop: 06/18/21 17:42 Last Admin: 06/18/21 17:39 Dose: 100 mls/hr Documented by: Vancomycin HCl 1 gm/ Sodium (Chloride) 250 mls @ 166 mls/hr IV ONETIME ONE Stop: 06/18/21 18:43 Last Admin: 06/18/21 17:39 Dose: 166 mls/hr Documented by: Sodium Chloride (Normal Saline) 1,000 mls @ 999 mls/hr IV STAT ONE Stop: 06/18/21 20:40 Last Admin: 06/18/21 20:04 Dose: 999 mls/hr Documented by: Vancomycin HCl 1.25 gm/ Premix 250 mls @ 250 mls/hr IV Q8H [facility] Last Admin: 06/19/21 03:00 Dose: 250 mls/hr Documented by: Ketorolac Tromethamine (Ketorolac 30 Mg/Ml Sdv) 30 mg IVPUSH ONETIME ONE Stop: 06/18/21 19:30 Last Admin: 06/18/21 19:56 Dose: 30 mg Documented by: - Exam General: Alert, Oriented Neck: Supple Lungs: Clear to Auscultation, Normal Respiratory Effort Cardiovascular: Regular Rate, Regular Rhythm GI/Abdominal Exam: Soft, Non-Tender, No Distention Extremities: Other (erythemia and mild induration surounding right knee, no effusion, no area of fluctance, segura crusted lesion above knee) - Patient Data Lab Results Last 24 hrs: Laboratory Results - last 24 hr 06/18/21 06/18/21 06/18/21 Range/Units 17:20 17:20 17:20 WBC 12.39 H (4.0-11.0) K/uL RBC 4.95 (4.50-5.90) M/uL Hgb 15.9 (13.0-17.0) g/dL Hct 44.2 (38.0-50.0) % MCV 89.3 (80.0-98.0) fL MCH 32.1 H (27.0-32.0) pg MCHC 36.0 (31.0-37.0) g/dL RDW Std Deviation 39.1 (28.0-62.0) fl RDW Coeff of Talha 12 (11.0-15.0) % Plt Count 145 L (150-400) K/uL MPV 10.80 (7.40-12.00) fL Neut % (Auto) 78.4 (48.0-80.0) % Lymph % (Auto) 12.3 L (16.0-40.0) % [place] % (Auto) 8.6 (0.0-15.0) % Eos % (Auto) 0.5 (0.0-7.0) % Baso % (Auto) 0.2 (0.0-1.5) % Neut # (Auto) 9.7 H (1.4-5.7) K/uL Lymph # (Auto) 1.5 (0.6-2.4) K/uL [place] # (Auto) 1.1 H (0.0-0.8) K/uL Eos # (Auto) 0.1 (0.0-0.7) K/uL Baso # (Auto) 0.0 (0.0-0.1) K/uL Nucleated RBC % 0.0 /100WBC Nucleated RBCs # 0 K/uL ESR 21 H (0-14) mm/hr Sodium 136 (136-148) mmol/L Potassium 4.7 (3.5-5.1) mmol/L Chloride 100 (98-107) mmol/L Carbon Dioxide 27.8 (21.0-32.0) mmol/L BUN 28 H (7.0-18.0) mg/dL Creatinine 0.9 (0.8-1.3) mg/dL Est Cr Clr Drug Dosing 114.00 mL/min Estimated GFR (MDRD) > 60.0 ml/min Glucose 90 (74-106) mg/dL Lactic Acid (0.4-2.0) mmol/L Calcium 9.0 (8.5-10.1) mg/dL Total Bilirubin 0.7 (0.2-1.0) mg/dL AST 29 (15-37) IU/L ALT 34 (14-63) IU/L Alkaline Phosphatase 94 (46-116) U/L C-Reactive Protein 13.80 H (0.00-0.90) mg/dL Total Protein 7.6 (6.4-8.2) g/dL Albumin 3.6 (3.4-5.0) g/dL Globulin 4.0 (2.6-4.0) g/dL Albumin/Globulin Ratio 0.9 (0.9-1.6) SARS-CoV-2 RNA (SHANIQUA) (NEGATIVE) 06/18/21 06/18/21 06/19/21 Range/Units 17:32 18:20 07:32 WBC 11.35 H (4.0-11.0) K/uL RBC 4.33 L (4.50-5.90) M/uL Hgb 13.6 (13.0-17.0) g/dL Hct 39.1 (38.0-50.0) % MCV 90.3 (80.0-98.0) fL MCH 31.4 (27.0-32.0) pg MCHC 34.8 (31.0-37.0) g/dL RDW Std Deviation 40.6 (28.0-62.0) fl RDW Coeff of Talha 12 (11.0-15.0) % Plt Count 141 L (150-400) K/uL MPV 10.50 (7.40-12.00) fL Neut % (Auto) 75.9 (48.0-80.0) % Lymph % (Auto) 15.1 L (16.0-40.0) % [place] % (Auto) 7.9 (0.0-15.0) % Eos % (Auto) 1.0 (0.0-7.0) % Baso % (Auto) 0.1 (0.0-1.5) % Neut # (Auto) 8.6 H (1.4-5.7) K/uL Lymph # (Auto) 1.7 (0.6-2.4) K/uL [place] # (Auto) 0.9 H (0.0-0.8) K/uL Eos # (Auto) 0.1 (0.0-0.7) K/uL Baso # (Auto) 0.0 (0.0-0.1) K/uL Nucleated RBC % 0.0 /100WBC Nucleated RBCs # 0 K/uL ESR (0-14) mm/hr Sodium (136-148) mmol/L Potassium (3.5-5.1) mmol/L Chloride (98-107) mmol/L Carbon Dioxide (21.0-32.0) mmol/L BUN (7.0-18.0) mg/dL Creatinine (0.8-1.3) mg/dL Est Cr Clr Drug Dosing mL/min Estimated GFR (MDRD) ml/min Glucose (74-106) mg/dL Lactic Acid 0.5 (0.4-2.0) mmol/L Calcium (8.5-10.1) mg/dL Total Bilirubin (0.2-1.0) mg/dL AST (15-37) IU/L ALT (14-63) IU/L Alkaline Phosphatase (46-116) U/L C-Reactive Protein (0.00-0.90) mg/dL Total Protein (6.4-8.2) g/dL Albumin (3.4-5.0) g/dL Globulin (2.6-4.0) g/dL Albumin/Globulin Ratio (0.9-1.6) SARS-CoV-2 RNA (SHANIQUA) NEGATIVE (NEGATIVE) 06/19/21 Range/Units 07:32 WBC (4.0-11.0) K/uL RBC (4.50-5.90) M/uL Hgb (13.0-17.0) g/dL Hct (38.0-50.0) % MCV (80.0-98.0) fL MCH (27.0-32.0) pg MCHC (31.0-37.0) g/dL RDW Std Deviation (28.0-62.0) fl RDW Coeff of Talha (11.0-15.0) % Plt Count (150-400) K/uL MPV (7.40-12.00) fL Neut % (Auto) (48.0-80.0) % Lymph % (Auto) (16.0-40.0) % [place] % (Auto) (0.0-15.0) % Eos % (Auto) (0.0-7.0) % Baso % (Auto) (0.0-1.5) % Neut # (Auto) (1.4-5.7) K/uL Lymph # (Auto) (0.6-2.4) K/uL [place] # (Auto) (0.0-0.8) K/uL Eos # (Auto) (0.0-0.7) K/uL Baso # (Auto) (0.0-0.1) K/uL Nucleated RBC % /100WBC Nucleated RBCs # K/uL ESR (0-14) mm/hr Sodium 136 (136-148) mmol/L Potassium 4.1 (3.5-5.1) mmol/L Chloride 103 (98-107) mmol/L Carbon Dioxide 27.6 (21.0-32.0) mmol/L BUN 18 (7.0-18.0) mg/dL Creatinine 0.9 (0.8-1.3) mg/dL Est Cr Clr Drug Dosing 106.33 mL/min Estimated GFR (MDRD) > 60.0 ml/min Glucose 88 (74-106) mg/dL Lactic Acid (0.4-2.0) mmol/L Calcium 8.1 L (8.5-10.1) mg/dL Total Bilirubin (0.2-1.0) mg/dL AST (15-37) IU/L ALT (14-63) IU/L Alkaline Phosphatase (46-116) U/L C-Reactive Protein (0.00-0.90) mg/dL Total Protein (6.4-8.2) g/dL Albumin (3.4-5.0) g/dL Globulin (2.6-4.0) g/dL Albumin/Globulin Ratio (0.9-1.6) SARS-CoV-2 RNA (SHANIQUA) (NEGATIVE) Result Diagrams: 06/19/21 07:32 06/19/21 07:32 Sepsis Event Note - Evaluation Sepsis Screening Result: Possible Sepsis Risk - Focused Exam Vital Signs: Vital Signs Temp Pulse Resp BP Pulse Ox 06/19/21 12:00 36.8 C 80 16 115/59 L 98 06/19/21 08:00 37.6 C 80 14 114/62 96 06/19/21 03:18 36.9 C 64 16 118/60 100 - Problem List Review Problem List Initiated/Reviewed/Updated: Yes - My Orders Last 24 Hours: My Active Orders 06/18/21 22:21 oxyCODONE 5 mg PO Q4H PRN 06/18/21 22:22 Acetaminophen [TylenoL] 650 mg PO Q6H PRN 06/18/21 22:23 Vital Signs [RC] Q4H 06/18/21 22:30 Pharmacy to Dose - Vancomycin 1 dose .XX ASDIRECTED 06/18/21 23:36 Up ad Katrin [RC] ASDIRECTED Resuscitation Status Routine 06/18/21 23:37 Oxygen Therapy [RC] PRN VTE/DVT Education [RC] PER UNIT ROUTINE Vital Signs [RC] Q4H 06/18/21 23:45 Enoxaparin [Lovenox] 40 mg SUBCUT Q24H 06/19/21 00:00 Piperacillin/Tazobactam [Piperacil-Tazobact] 3.375 gm Sodium Chloride 0.9% [Normal Saline] 50 ml IV Q6H 06/19/21 Breakfast Regular Diet [DIET] 06/19/21 10:00 Vancomycin 1.25 gm Sodium Chloride 0.9% [Normal Saline (AdvBag)] 250 ml IV Q8H - Plan Plan:: 30 yo male admitted for right lower leg cellulitis. We will continue Vancomycin and Zosyn.
[2021-06-19] MEDS: Enoxaparin 40 MG/0.4 ML Syringe SUBCUT SCH (23:51)
[2021-06-20] MEDS: Piperacillin/Tazobactam 3.375 GM in Sodium Chloride 0.9% 50 ML IV SCH ×4 (06:18→23:45)
[2021-06-20 07:57] LABS: BLOOD UREA NITROGEN,BUN 16 mg/dL (7.0-18.0); CARBON DIOXIDE,CO2 29.1 mmol/L (21.0-32.0); CHLORIDE,CL 102 mmol/L (98-107); GLUCOSE RANDOM 86 mg/dL (74-106); POTASSIUM,K 3.8 mmol/L (3.5-5.1); SODIUM,NA 140 mmol/L (136-148)
--- NOTE | 2021-06-20 14:06 | PCM.PN ---
- General Info Date of Service: 06/20/21 - Review of Systems Systems Review Comment:: knee feeling better, redness is improving. - Patient Data Vitals - Most Recent: Last Vital Signs Temp 36.6 C 06/20/21 13:00 Pulse 78 06/20/21 13:00 Resp 16 06/20/21 13:00 BP 128/70 06/20/21 13:00 Pulse Ox 97 06/20/21 13:00 Weight - Most Recent: 78.426 kg I&O - Last 24 Hours: Intake & Output 06/19/21 06/20/21 06/20/21 22:59 06:59 14:59 Intake Total 750 850 Output Total 0 Balance 750 850 Lab Results Last 24 Hours: Laboratory Results - last 24 hr 06/20/21 06/20/21 06/20/21 Range/Units 01:07 06:46 06:46 WBC 11.49 H (4.0-11.0) K/uL RBC 4.54 (4.50-5.90) M/uL Hgb 14.2 (13.0-17.0) g/dL Hct 41.6 (38.0-50.0) % MCV 91.6 (80.0-98.0) fL MCH 31.3 (27.0-32.0) pg MCHC 34.1 (31.0-37.0) g/dL RDW Std Deviation 41.4 (28.0-62.0) fl RDW Coeff of Talha 12 (11.0-15.0) % Plt Count 172 (150-400) K/uL MPV 10.60 (7.40-12.00) fL Neut % (Auto) 71.4 (48.0-80.0) % Lymph % (Auto) 18.6 (16.0-40.0) % Mobile % (Auto) 8.5 (0.0-15.0) % Eos % (Auto) 1.4 (0.0-7.0) % Baso % (Auto) 0.1 (0.0-1.5) % Neut # (Auto) 8.2 H (1.4-5.7) K/uL Lymph # (Auto) 2.1 (0.6-2.4) K/uL Mobile # (Auto) 1.0 H (0.0-0.8) K/uL Eos # (Auto) 0.2 (0.0-0.7) K/uL Baso # (Auto) 0.0 (0.0-0.1) K/uL Nucleated RBC % 0.0 /100WBC Nucleated RBCs # 0 K/uL Sodium 140 (136-148) mmol/L Potassium 3.8 (3.5-5.1) mmol/L Chloride 102 (98-107) mmol/L Carbon Dioxide 29.1 (21.0-32.0) mmol/L BUN 16 (7.0-18.0) mg/dL Creatinine 1.0 (0.8-1.3) mg/dL Est Cr Clr Drug Dosing 95.70 mL/min Estimated GFR (MDRD) > 60.0 ml/min Glucose 86 (74-106) mg/dL Calcium 8.6 (8.5-10.1) mg/dL Vancomycin Trough 10.5 H (5.0-10.0) ug/mL Min Results Last 24 Hours: Microbiology 06/18/21 17:20 Miscellaneous Reference Culture - Preliminary Wound - Knee, Right Staphylococcus Aureus Gram Stain - Final 06/18/21 17:32 Aerobic Blood Culture - Preliminary Blood - Venous NO GROWTH AFTER 1 DAY Anaerobic Blood Culture - Preliminary NO GROWTH AFTER 1 DAY 06/18/21 17:20 Aerobic Blood Culture - Preliminary Blood - Venous - Lab Draw NO GROWTH AFTER 1 DAY Anaerobic Blood Culture - Preliminary NO GROWTH AFTER 1 DAY Med Orders - Current: Current Medications Acetaminophen (Acetaminophen 325 Mg Tab) 650 mg PO Q6H PRN PRN Reason: Pain (mild 1-3) Last Admin: 06/19/21 23:50 Dose: 650 mg Documented by: Enoxaparin Sodium (Enoxaparin 40 Mg/0.4 Ml Syringe) 40 mg SUBCUT Q24H [facility] Last Admin: 06/19/21 23:51 Dose: 40 mg Documented by: Piperacillin Sod/Tazobactam (Sod 3.375 gm/ Sodium Chloride) 50 mls @ 100 mls/hr IV Q6H [facility] Last Admin: 06/20/21 11:26 Dose: 100 mls/hr Documented by: Vancomycin HCl 1.25 gm/ Sodium (Chloride) 250 mls @ 250 mls/hr IV Q8H [facility] Last Admin: 06/20/21 09:52 Dose: 250 mls/hr Documented by: Oxycodone HCl (Oxycodone 5 Mg Tab) 5 mg PO Q4H PRN PRN Reason: Pain Vancomycin HCl (Pharmacy To Dose - Vancomycin) 1 dose .XX ASDIRECTED [facility] Discontinued Medications Acetaminophen (Acetaminophen 500 Mg Tab) 1,000 mg PO ONETIME ONE Stop: 06/18/21 19:30 Last Admin: 06/18/21 20:03 Dose: 1,000 mg Documented by: Hydromorphone HCl (Hydromorphone 2 Mg/Ml Syringe) 0.5 mg IVPUSH ONETIME ONE Stop: 06/18/21 19:30 Last Admin: 06/18/21 19:59 Dose: 0.5 mg Documented by: Sodium Chloride (Normal Saline) 1,000 mls @ 999 mls/hr IV BOLUS ONE Stop: 06/18/21 18:03 Last Admin: 06/18/21 17:09 Dose: 999 mls/hr Documented by: Ceftriaxone Sodium/Dextrose 1 (gm/ Premix) 50 mls @ 100 mls/hr IV ONETIME ONE Stop: 06/18/21 17:36 Last Admin: 06/18/21 17:46 Dose: Not Given Documented by: Piperacillin Sod/Tazobactam (Sod 3.375 gm/ Sodium Chloride) 50 mls @ 100 mls/hr IV ONETIME ONE Stop: 06/18/21 17:42 Last Admin: 06/18/21 17:39 Dose: 100 mls/hr Documented by: Vancomycin HCl 1 gm/ Sodium (Chloride) 250 mls @ 166 mls/hr IV ONETIME ONE Stop: 06/18/21 18:43 Last Admin: 06/18/21 17:39 Dose: 166 mls/hr Documented by: Sodium Chloride (Normal Saline) 1,000 mls @ 999 mls/hr IV STAT ONE Stop: 06/18/21 20:40 Last Admin: 06/18/21 20:04 Dose: 999 mls/hr Documented by: Vancomycin HCl 1.25 gm/ Premix 250 mls @ 250 mls/hr IV Q8H [facility] Last Admin: 06/19/21 03:00 Dose: 250 mls/hr Documented by: Ketorolac Tromethamine (Ketorolac 30 Mg/Ml Sdv) 30 mg IVPUSH ONETIME ONE Stop: 06/18/21 19:30 Last Admin: 06/18/21 19:56 Dose: 30 mg Documented by: - Exam General: Alert, Oriented Neck: Supple Lungs: Clear to Auscultation, Normal Respiratory Effort GI/Abdominal Exam: Soft, Non-Tender, No Distention Extremities: Other (yellow crust has been unroofed leaving behing 3 cm ulcer, scant purulence, mostly bloody serosangenous drainage, no area of fluctuance, no effusion of knee, induration and erytema has improved) Neurological: No New Focal Deficit - Patient Data Lab Results Last 24 hrs: Laboratory Results - last 24 hr 06/20/21 06/20/21 06/20/21 Range/Units 01:07 06:46 06:46 WBC 11.49 H (4.0-11.0) K/uL RBC 4.54 (4.50-5.90) M/uL Hgb 14.2 (13.0-17.0) g/dL Hct 41.6 (38.0-50.0) % MCV 91.6 (80.0-98.0) fL MCH 31.3 (27.0-32.0) pg MCHC 34.1 (31.0-37.0) g/dL RDW Std Deviation 41.4 (28.0-62.0) fl RDW Coeff of Talha 12 (11.0-15.0) % Plt Count 172 (150-400) K/uL MPV 10.60 (7.40-12.00) fL Neut % (Auto) 71.4 (48.0-80.0) % Lymph % (Auto) 18.6 (16.0-40.0) % Mobile % (Auto) 8.5 (0.0-15.0) % Eos % (Auto) 1.4 (0.0-7.0) % Baso % (Auto) 0.1 (0.0-1.5) % Neut # (Auto) 8.2 H (1.4-5.7) K/uL Lymph # (Auto) 2.1 (0.6-2.4) K/uL Mobile # (Auto) 1.0 H (0.0-0.8) K/uL Eos # (Auto) 0.2 (0.0-0.7) K/uL Baso # (Auto) 0.0 (0.0-0.1) K/uL Nucleated RBC % 0.0 /100WBC Nucleated RBCs # 0 K/uL Sodium 140 (136-148) mmol/L Potassium 3.8 (3.5-5.1) mmol/L Chloride 102 (98-107) mmol/L Carbon Dioxide 29.1 (21.0-32.0) mmol/L BUN 16 (7.0-18.0) mg/dL Creatinine 1.0 (0.8-1.3) mg/dL Est Cr Clr Drug Dosing 95.70 mL/min Estimated GFR (MDRD) > 60.0 ml/min Glucose 86 (74-106) mg/dL Calcium 8.6 (8.5-10.1) mg/dL Vancomycin Trough 10.5 H (5.0-10.0) ug/mL Result Diagrams: 06/20/21 06:46 06/20/21 06:46 Min Results Last 24 hrs: Microbiology 06/18/21 17:20 Miscellaneous Reference Culture - Preliminary Wound - Knee, Right Staphylococcus Aureus Gram Stain - Final 06/18/21 17:32 Aerobic Blood Culture - Preliminary Blood - Venous NO GROWTH AFTER 1 DAY Anaerobic Blood Culture - Preliminary NO GROWTH AFTER 1 DAY 06/18/21 17:20 Aerobic Blood Culture - Preliminary Blood - Venous - Lab Draw NO GROWTH AFTER 1 DAY Anaerobic Blood Culture - Preliminary NO GROWTH AFTER 1 DAY Sepsis Event Note - Evaluation Sepsis Screening Result: No Definite Risk - Focused Exam Vital Signs: Vital Signs Temp Pulse Resp BP Pulse Ox 06/20/21 13:00 36.6 C 78 16 128/70 97 06/20/21 09:00 36.4 C 73 16 115/59 L 98 06/20/21 03:48 36.2 C 66 16 113/65 97 - Problem List Review Problem List Initiated/Reviewed/Updated: Yes - Plan Plan:: 30 yo male admitted for right lower leg cellulitis. We will continue vancomycin and Zosyn.
[2021-06-20] MEDS: Enoxaparin 40 MG/0.4 ML Syringe SUBCUT SCH (23:34)
[2021-06-21] MEDS: Piperacillin/Tazobactam 3.375 GM in Sodium Chloride 0.9% 50 ML IV SCH ×4 (06:36→23:29)
--- NOTE | 2021-06-21 09:32 | PCM.PN ---
- General Info Date of Service: 06/21/21 Admission Dx/Problem (Free Text): Admission Diagnosis/Problem Admission Diagnosis/Problem Cellulitis Subjective Update: Feeling somewhat improved today. Continues to have difficulty walking but does not feel the pain is in his joint of right knee but it is more so in the tissue surrounding. Denies any chest pain shortness of breath no fevers or chills otherwise feeling improved. Understands we are waiting for finalization of wound culture prior to discharge. Functional Status: Reports: Pain Controlled, Tolerating Diet, Ambulating (Limited due to pain) - Review of Systems General: Reports: No Symptoms. Denies: Fever, Weakness, Malaise Pulmonary: Reports: No Symptoms. Denies: Shortness of Breath Cardiovascular: Reports: No Symptoms. Denies: Chest Pain Gastrointestinal: Reports: No Symptoms. Denies: Abdominal Pain, Nausea, Vomiting Genitourinary: Reports: No Symptoms. Denies: Dysuria, Frequency Musculoskeletal: Reports: No Symptoms Skin: Reports: Other (Wound to right knee) Neurological: Reports: No Symptoms Psychiatric: Reports: No Symptoms - Patient Data Vitals - Most Recent: Last Vital Signs Temp 97.3 F 06/21/21 03:00 Pulse 71 06/21/21 03:00 Resp 16 06/21/21 03:00 BP 115/60 06/21/21 03:00 Pulse Ox 97 06/21/21 03:00 Weight - Most Recent: 78.426 kg I&O - Last 24 Hours: Intake & Output 06/20/21 06/21/21 06/21/21 22:59 06:59 14:59 Intake Total 1140 700 50 Output Total 1000 0 Balance 140 700 50 Min Results Last 24 Hours: Microbiology 06/18/21 17:32 Aerobic Blood Culture - Preliminary Blood - Venous NO GROWTH AFTER 2 DAYS Anaerobic Blood Culture - Preliminary NO GROWTH AFTER 2 DAYS 06/18/21 17:20 Aerobic Blood Culture - Preliminary Blood - Venous - Lab Draw NO GROWTH AFTER 2 DAYS Anaerobic Blood Culture - Preliminary NO GROWTH AFTER 2 DAYS 06/18/21 17:20 Miscellaneous Reference Culture - Preliminary Wound - Knee, Right Staphylococcus Aureus Gram Stain - Final Med Orders - Current: Current Medications Acetaminophen (Acetaminophen 325 Mg Tab) 650 mg PO Q6H PRN PRN Reason: Pain (mild 1-3) Last Admin: 06/19/21 23:50 Dose: 650 mg Documented by: Enoxaparin Sodium (Enoxaparin 40 Mg/0.4 Ml Syringe) 40 mg SUBCUT Q24H [facility] Last Admin: 06/20/21 23:34 Dose: 40 mg Documented by: Piperacillin Sod/Tazobactam (Sod 3.375 gm/ Sodium Chloride) 50 mls @ 100 mls/hr IV Q6H [facility] Last Admin: 06/21/21 06:36 Dose: 100 mls/hr Documented by: Vancomycin HCl 1.25 gm/ Sodium (Chloride) 250 mls @ 250 mls/hr IV Q8H [facility] Last Admin: 06/21/21 09:18 Dose: 250 mls/hr Documented by: Oxycodone HCl (Oxycodone 5 Mg Tab) 5 mg PO Q4H PRN PRN Reason: Pain Vancomycin HCl (Pharmacy To Dose - Vancomycin) 1 dose .XX ASDIRECTED [facility] Discontinued Medications Acetaminophen (Acetaminophen 500 Mg Tab) 1,000 mg PO ONETIME ONE Stop: 06/18/21 19:30 Last Admin: 06/18/21 20:03 Dose: 1,000 mg Documented by: Hydromorphone HCl (Hydromorphone 2 Mg/Ml Syringe) 0.5 mg IVPUSH ONETIME ONE Stop: 06/18/21 19:30 Last Admin: 06/18/21 19:59 Dose: 0.5 mg Documented by: Sodium Chloride (Normal Saline) 1,000 mls @ 999 mls/hr IV BOLUS ONE Stop: 06/18/21 18:03 Last Admin: 06/18/21 17:09 Dose: 999 mls/hr Documented by: Ceftriaxone Sodium/Dextrose 1 (gm/ Premix) 50 mls @ 100 mls/hr IV ONETIME ONE Stop: 06/18/21 17:36 Last Admin: 06/18/21 17:46 Dose: Not Given Documented by: Piperacillin Sod/Tazobactam (Sod 3.375 gm/ Sodium Chloride) 50 mls @ 100 mls/hr IV ONETIME ONE Stop: 06/18/21 17:42 Last Admin: 06/18/21 17:39 Dose: 100 mls/hr Documented by: Vancomycin HCl 1 gm/ Sodium (Chloride) 250 mls @ 166 mls/hr IV ONETIME ONE Stop: 06/18/21 18:43 Last Admin: 06/18/21 17:39 Dose: 166 mls/hr Documented by: Sodium Chloride (Normal Saline) 1,000 mls @ 999 mls/hr IV STAT ONE Stop: 06/18/21 20:40 Last Admin: 06/18/21 20:04 Dose: 999 mls/hr Documented by: Vancomycin HCl 1.25 gm/ Premix 250 mls @ 250 mls/hr IV Q8H [facility] Last Admin: 06/19/21 03:00 Dose: 250 mls/hr Documented by: Ketorolac Tromethamine (Ketorolac 30 Mg/Ml Sdv) 30 mg IVPUSH ONETIME ONE Stop: 06/18/21 19:30 Last Admin: 06/18/21 19:56 Dose: 30 mg Documented by: - Exam Quality Assessment: No: Supplemental Oxygen General: Alert, Oriented Lungs: Clear to Auscultation, Normal Respiratory Effort Cardiovascular: Regular Rate, Regular Rhythm GI/Abdominal Exam: Normal Bowel Sounds, Soft, Non-Tender Extremities: Normal Inspection, No Pedal Edema, Joint Swelling (r knee) Wound/Incisions: Drainage (purulence to R knee, no fluctuance noted.), Erythema Improving Neurological: No New Focal Deficit Psy/Mental Status: Alert, Normal Affect, Normal Mood - Patient Data Result Diagrams: 06/20/21 06:46 06/20/21 06:46 Min Results Last 24 hrs: Microbiology 06/18/21 17:32 Aerobic Blood Culture - Preliminary Blood - Venous NO GROWTH AFTER 2 DAYS Anaerobic Blood Culture - Preliminary NO GROWTH AFTER 2 DAYS 06/18/21 17:20 Aerobic Blood Culture - Preliminary Blood - Venous - Lab Draw NO GROWTH AFTER 2 DAYS Anaerobic Blood Culture - Preliminary NO GROWTH AFTER 2 DAYS 06/18/21 17:20 Miscellaneous Reference Culture - Preliminary Wound - Knee, Right Staphylococcus Aureus Gram Stain - Final Sepsis Event Note - Evaluation Sepsis Screening Result: No Definite Risk - Focused Exam Vital Signs: Vital Signs Temp Pulse Resp BP Pulse Ox 06/21/21 03:00 97.3 F 71 16 115/60 97 06/20/21 23:31 97.5 F 83 16 103/61 97 - Problem List & Annotations (1) Cellulitis SNOMED Code(s): 990463735 Code(s): L03.90 - CELLULITIS, UNSPECIFIED Status: Acute Current Visit: Yes Qualifiers: Site of cellulitis: extremity Site of cellulitis of extremity: lower extremity Laterality: right Qualified Code(s): L03.115 - Cellulitis of right lower limb - Problem List Review Problem List Initiated/Reviewed/Updated: Yes - Plan Plan:: 30 yo male admitted for right lower leg cellulitis. 1. Right lower extremity cellulitis - we will continue vancomycin and Zosyn. -Wound culture revealed staph aureus final MIN pending -Continue dressing changes twice daily and as needed for drainage VTE prophylaxis: Lovenox CODE STATUS: Full code Dispo 2 days pending final cultures
[2021-06-21] MEDS: Enoxaparin 40 MG/0.4 ML Syringe SUBCUT SCH (23:28)
[2021-06-22] MEDS: Piperacillin/Tazobactam 3.375 GM in Sodium Chloride 0.9% 50 ML IV SCH ×4 (05:27→23:39)
[2021-06-22 07:20] LABS: BLOOD UREA NITROGEN,BUN 21 mg/dL (7.0-18.0); CARBON DIOXIDE,CO2 26.4 mmol/L (21.0-32.0); CHLORIDE,CL 104 mmol/L (98-107); GLUCOSE RANDOM 89 mg/dL (74-106); SODIUM,NA 139 mmol/L (136-148)
--- NOTE | 2021-06-22 11:19 | PCM.PN ---
- General Info Date of Service: 06/22/21 Admission Dx/Problem (Free Text): Admission Diagnosis/Problem Admission Diagnosis/Problem Cellulitis Subjective Update: Feeling improved today, ambulating better without as much pain. Drainage continues but improving, Erythema continues to improve. Functional Status: Reports: Pain Controlled, Tolerating Diet, Ambulating, Urinating - Review of Systems General: Reports: No Symptoms. Denies: Fever, Weakness, Fatigue HEENT: Reports: No Symptoms. Denies: Headaches, Sore Throat, Visual Changes Pulmonary: Reports: No Symptoms. Denies: Shortness of Breath Cardiovascular: Reports: No Symptoms. Denies: Chest Pain Gastrointestinal: Reports: No Symptoms. Denies: Abdominal Pain, Nausea, Vomiting Genitourinary: Reports: No Symptoms. Denies: Dysuria, Frequency, Burning Musculoskeletal: Reports: Joint Swelling (R knee) Skin: Reports: No Symptoms, Other (erythema ) Neurological: Reports: No Symptoms Psychiatric: Reports: No Symptoms - Patient Data Vitals - Most Recent: Last Vital Signs Temp 97.9 F 06/22/21 07:54 Pulse 61 06/22/21 07:54 Resp 20 06/22/21 07:54 BP 116/53 L 06/22/21 07:54 Pulse Ox 97 06/22/21 07:54 Weight - Most Recent: 78.426 kg I&O - Last 24 Hours: Intake & Output 06/21/21 06/22/21 06/22/21 22:59 06:59 14:59 Intake Total 1300 1100 Output Total 890 0 Balance 410 1100 Lab Results Last 24 Hours: Laboratory Results - last 24 hr 06/21/21 06/22/21 06/22/21 Range/Units 17:16 05:28 05:28 WBC 7.85 (4.0-11.0) K/uL RBC 4.49 L (4.50-5.90) M/uL Hgb 13.9 (13.0-17.0) g/dL Hct 40.5 (38.0-50.0) % MCV 90.2 (80.0-98.0) fL MCH 31.0 (27.0-32.0) pg MCHC 34.3 (31.0-37.0) g/dL RDW Std Deviation 39.8 (28.0-62.0) fl RDW Coeff of Talha 12 (11.0-15.0) % Plt Count 199 (150-400) K/uL MPV 10.30 (7.40-12.00) fL Neut % (Auto) 64.4 (48.0-80.0) % Lymph % (Auto) 23.3 (16.0-40.0) % [place] % (Auto) 8.8 (0.0-15.0) % Eos % (Auto) 3.2 (0.0-7.0) % Baso % (Auto) 0.3 (0.0-1.5) % Neut # (Auto) 5.1 (1.4-5.7) K/uL Lymph # (Auto) 1.8 (0.6-2.4) K/uL [place] # (Auto) 0.7 (0.0-0.8) K/uL Eos # (Auto) 0.3 (0.0-0.7) K/uL Baso # (Auto) 0.0 (0.0-0.1) K/uL Nucleated RBC % 0.0 /100WBC Nucleated RBCs # 0 K/uL Sodium 139 (136-148) mmol/L Potassium 4.0 (3.5-5.1) mmol/L Chloride 104 (98-107) mmol/L Carbon Dioxide 26.4 (21.0-32.0) mmol/L BUN 21 H (7.0-18.0) mg/dL Creatinine 1.0 (0.8-1.3) mg/dL Est Cr Clr Drug Dosing 95.70 mL/min Estimated GFR (MDRD) > 60.0 ml/min Glucose 89 (74-106) mg/dL Calcium 8.7 (8.5-10.1) mg/dL Vancomycin Trough 10.5 H (5.0-10.0) ug/mL Min Results Last 24 Hours: Microbiology 06/18/21 17:20 Miscellaneous Reference Culture - Final Wound - Knee, Right Staphylococcus Aureus Gram Stain - Final 06/18/21 17:32 Aerobic Blood Culture - Preliminary Blood - Venous NO GROWTH AFTER 3 DAYS Anaerobic Blood Culture - Preliminary NO GROWTH AFTER 3 DAYS 06/18/21 17:20 Aerobic Blood Culture - Preliminary Blood - Venous - Lab Draw NO GROWTH AFTER 3 DAYS Anaerobic Blood Culture - Preliminary NO GROWTH AFTER 3 DAYS Med Orders - Current: Current Medications Acetaminophen (Acetaminophen 325 Mg Tab) 650 mg PO Q6H PRN PRN Reason: Pain (mild 1-3) Last Admin: 06/19/21 23:50 Dose: 650 mg Documented by: Enoxaparin Sodium (Enoxaparin 40 Mg/0.4 Ml Syringe) 40 mg SUBCUT Q24H [facility] Last Admin: 06/21/21 23:28 Dose: 40 mg Documented by: Piperacillin Sod/Tazobactam (Sod 3.375 gm/ Sodium Chloride) 50 mls @ 100 mls/hr IV Q6H [facility] Last Admin: 06/22/21 05:27 Dose: 100 mls/hr Documented by: Vancomycin HCl 1.25 gm/ Sodium (Chloride) 250 mls @ 250 mls/hr IV Q8H [facility] Last Admin: 06/22/21 10:10 Dose: 250 mls/hr Documented by: Oxycodone HCl (Oxycodone 5 Mg Tab) 5 mg PO Q4H PRN PRN Reason: Pain Vancomycin HCl (Pharmacy To Dose - Vancomycin) 1 dose .XX ASDIRECTED [facility] Discontinued Medications Acetaminophen (Acetaminophen 500 Mg Tab) 1,000 mg PO ONETIME ONE Stop: 06/18/21 19:30 Last Admin: 06/18/21 20:03 Dose: 1,000 mg Documented by: Hydromorphone HCl (Hydromorphone 2 Mg/Ml Syringe) 0.5 mg IVPUSH ONETIME ONE Stop: 06/18/21 19:30 Last Admin: 06/18/21 19:59 Dose: 0.5 mg Documented by: Sodium Chloride (Normal Saline) 1,000 mls @ 999 mls/hr IV BOLUS ONE Stop: 06/18/21 18:03 Last Admin: 06/18/21 17:09 Dose: 999 mls/hr Documented by: Ceftriaxone Sodium/Dextrose 1 (gm/ Premix) 50 mls @ 100 mls/hr IV ONETIME ONE Stop: 06/18/21 17:36 Last Admin: 06/18/21 17:46 Dose: Not Given Documented by: Piperacillin Sod/Tazobactam (Sod 3.375 gm/ Sodium Chloride) 50 mls @ 100 mls/hr IV ONETIME ONE Stop: 06/18/21 17:42 Last Admin: 06/18/21 17:39 Dose: 100 mls/hr Documented by: Vancomycin HCl 1 gm/ Sodium (Chloride) 250 mls @ 166 mls/hr IV ONETIME ONE Stop: 06/18/21 18:43 Last Admin: 06/18/21 17:39 Dose: 166 mls/hr Documented by: Sodium Chloride (Normal Saline) 1,000 mls @ 999 mls/hr IV STAT ONE Stop: 06/18/21 20:40 Last Admin: 06/18/21 20:04 Dose: 999 mls/hr Documented by: Vancomycin HCl 1.25 gm/ Premix 250 mls @ 250 mls/hr IV Q8H [facility] Last Admin: 06/19/21 03:00 Dose: 250 mls/hr Documented by: Ketorolac Tromethamine (Ketorolac 30 Mg/Ml Sdv) 30 mg IVPUSH ONETIME ONE Stop: 06/18/21 19:30 Last Admin: 06/18/21 19:56 Dose: 30 mg Documented by: - Exam General: Alert, Oriented, Cooperative, No Acute Distress Lungs: Clear to Auscultation, Normal Respiratory Effort Cardiovascular: Regular Rate, Regular Rhythm GI/Abdominal Exam: Normal Bowel Sounds, Soft, Non-Tender, No Organomegaly Extremities: Normal Inspection, Normal Range of Motion, Non-Tender, No Pedal Edema Neurological: No New Focal Deficit Psy/Mental Status: Alert, Normal Affect, Normal Mood - Patient Data Lab Results Last 24 hrs: Laboratory Results - last 24 hr 06/21/21 06/22/21 06/22/21 Range/Units 17:16 05:28 05:28 WBC 7.85 (4.0-11.0) K/uL RBC 4.49 L (4.50-5.90) M/uL Hgb 13.9 (13.0-17.0) g/dL Hct 40.5 (38.0-50.0) % MCV 90.2 (80.0-98.0) fL MCH 31.0 (27.0-32.0) pg MCHC 34.3 (31.0-37.0) g/dL RDW Std Deviation 39.8 (28.0-62.0) fl RDW Coeff of Talha 12 (11.0-15.0) % Plt Count 199 (150-400) K/uL MPV 10.30 (7.40-12.00) fL Neut % (Auto) 64.4 (48.0-80.0) % Lymph % (Auto) 23.3 (16.0-40.0) % [place] % (Auto) 8.8 (0.0-15.0) % Eos % (Auto) 3.2 (0.0-7.0) % Baso % (Auto) 0.3 (0.0-1.5) % Neut # (Auto) 5.1 (1.4-5.7) K/uL Lymph # (Auto) 1.8 (0.6-2.4) K/uL [place] # (Auto) 0.7 (0.0-0.8) K/uL Eos # (Auto) 0.3 (0.0-0.7) K/uL Baso # (Auto) 0.0 (0.0-0.1) K/uL Nucleated RBC % 0.0 /100WBC Nucleated RBCs # 0 K/uL Sodium 139 (136-148) mmol/L Potassium 4.0 (3.5-5.1) mmol/L Chloride 104 (98-107) mmol/L Carbon Dioxide 26.4 (21.0-32.0) mmol/L BUN 21 H (7.0-18.0) mg/dL Creatinine 1.0 (0.8-1.3) mg/dL Est Cr Clr Drug Dosing 95.70 mL/min Estimated GFR (MDRD) > 60.0 ml/min Glucose 89 (74-106) mg/dL Calcium 8.7 (8.5-10.1) mg/dL Vancomycin Trough 10.5 H (5.0-10.0) ug/mL Result Diagrams: 06/22/21 05:28 06/22/21 05:28 Min Results Last 24 hrs: Microbiology 06/18/21 17:20 Miscellaneous Reference Culture - Final Wound - Knee, Right Staphylococcus Aureus Gram Stain - Final 06/18/21 17:32 Aerobic Blood Culture - Preliminary Blood - Venous NO GROWTH AFTER 3 DAYS Anaerobic Blood Culture - Preliminary NO GROWTH AFTER 3 DAYS 06/18/21 17:20 Aerobic Blood Culture - Preliminary Blood - Venous - Lab Draw NO GROWTH AFTER 3 DAYS Anaerobic Blood Culture - Preliminary NO GROWTH AFTER 3 DAYS Sepsis Event Note - Evaluation Sepsis Screening Result: No Definite Risk - Focused Exam Vital Signs: Vital Signs Temp Pulse Resp BP Pulse Ox Pulse Ox 06/22/21 07:54 97.9 F 61 20 116/53 L 97 06/22/21 04:05 97.5 F 76 96 H 105/56 L 95 06/21/21 23:26 97.5 F 66 16 107/57 L 95 95 - Problem List & Annotations (1) Cellulitis SNOMED Code(s): 210728171 Code(s): L03.90 - CELLULITIS, UNSPECIFIED Status: Acute Current Visit: Yes Qualifiers: Site of cellulitis: extremity Site of cellulitis of extremity: lower extremity Laterality: right Qualified Code(s): L03.115 - Cellulitis of right lower limb - Problem List Review Problem List Initiated/Reviewed/Updated: Yes - My Orders Last 24 Hours: My Active Orders 06/22/21 10:53 Consult to Wound Care Services [CONS] Routine - Plan Plan:: 30 yo male admitted for right lower leg cellulitis. 1. Right lower extremity cellulitis - we will continue vancomycin and Zosyn. -Wound culture revealed staph aureus final MIN pending -Continue dressing changes twice daily and as needed for drainage - Consult wound care VTE prophylaxis: Lovenox CODE STATUS: Full code Dispo 2 days pending final cultures
--- NOTE | 2021-06-22 15:01 | PCM.CONS ---
H&P History of Present Illness - General Date of Service: 06/22/21 Admit Problem/Dx: Admission Diagnosis/Problem Admission Diagnosis/Problem Cellulitis Source of Information: Patient History Limitations: Reports: No Limitations - History of Present Illness Initial Comments - Free Text/Narative: I was asked to see this 30-year-old gentleman who was admitted to the hospital on June 18 with cellulitis of his right knee. He states this started 3 or 4 days prior to admission and thought perhaps it was from a spider bite. It has gotten progressively worse to the point that he was not able to walk on it or bear substantial weight. His initial presentation included a leukocytosis of 13,000+. He has been started on parenteral antibiotics and is feeling better now. Says he can partially weight bear. Wound care saw him today and requested surgical evaluation. He has had ultrasound and plain films of the knee which does not show any apparent joint involvement. He has however, not had a CT scan to evaluate the deep soft tissues. Pain has been controlled with parenteral analgesics. Location: Reports: Lower Extremity, Right Quality: Reports: Pressure Severity: Moderate Improves with: Reports: Rest Worsens with: Reports: Movement Context: Reports: Exertion Associated Symptoms: Reports: No Other Symptoms right knee Pain Score (Numeric/FACES): 7 - Related Data Allergies/Adverse Reactions: Allergies Allergy/AdvReac Type Severity Reaction Status Date / Time No Known Allergies Allergy Verified 06/18/21 21:56 Home Medications: Home Meds . [No Known Home Meds] 06/18/21 [History] Past Medical History - Past Health History Medical/Surgical History: Denies Medical/Surgical History Social & Family History - Tobacco Use Tobacco Use Status *Q: Never Tobacco User - Caffeine Use Caffeine Use: Reports: Coffee, Energy Drinks - Recreational Drug Use Recreational Drug Use: No H&P Review of Systems - Review of Systems: Review Of Systems: See Below General: Reports: Malaise. Denies: Fever, Chills, Weakness, Fatigue HEENT: Reports: No Symptoms Pulmonary: Denies: Shortness of Breath, Wheezing Cardiovascular: Denies: Chest Pain Gastrointestinal: Denies: Abdominal Pain, Anorexia, Black Stool, Bloody Stool Genitourinary: Denies: Dysuria, Frequency, Burning Musculoskeletal: Reports: Leg Pain (right knee), Joint Pain (right) Skin: Denies: Cyanosis, Jaundice, Mottled, Pallor, Diaphoresis Psychiatric: Denies: Confusion, Depression, Anxiety Neurological: Denies: Confusion, Dizziness, Headache Hematologic/Lymphatic: Reports: No Symptoms Exam - Exam Exam: See Below - Vital Signs Vital Signs: Last Vital Signs Temp 96.8 F L 06/22/21 11:31 Pulse 67 06/22/21 11:31 Resp 20 06/22/21 11:31 BP 113/55 L 06/22/21 11:31 Pulse Ox 98 06/22/21 11:31 Weight: 172 lb 14.4 oz - Exam General: Alert, Oriented, Cooperative, Mild Distress HEENT: Conjunctiva Clear, Pupils Equal. No: Scleral Icterus Neck: Supple, Trachea Midline Lungs: Clear to Auscultation, Normal Respiratory Effort Cardiovascular: Regular Rate, Regular Rhythm GI/Abdominal Exam: Normal Bowel Sounds, Soft, Non-Tender, No Organomegaly, No Distention, No Abnormal Bruit, No Mass, Pelvis Stable (Male) Exam: Deferred Rectal (Males) Exam: Deferred Extremities: Joint Swelling (right knee with blistering of the skin.) Skin: Wound (Right knee) Neurological: Cranial Nerves Intact Neuro Extensive - Mental Status: Alert, Oriented x3 Psychiatric: Alert, Normal Affect, Normal Mood - Patient Data Lab Results Last 24 hrs: Laboratory Results - last 24 hr 06/21/21 06/22/21 06/22/21 Range/Units 17:16 05:28 05:28 WBC 7.85 (4.0-11.0) K/uL RBC 4.49 L (4.50-5.90) M/uL Hgb 13.9 (13.0-17.0) g/dL Hct 40.5 (38.0-50.0) % MCV 90.2 (80.0-98.0) fL MCH 31.0 (27.0-32.0) pg MCHC 34.3 (31.0-37.0) g/dL RDW Std Deviation 39.8 (28.0-62.0) fl RDW Coeff of Talha 12 (11.0-15.0) % Plt Count 199 (150-400) K/uL MPV 10.30 (7.40-12.00) fL Neut % (Auto) 64.4 (48.0-80.0) % Lymph % (Auto) 23.3 (16.0-40.0) % [place] % (Auto) 8.8 (0.0-15.0) % Eos % (Auto) 3.2 (0.0-7.0) % Baso % (Auto) 0.3 (0.0-1.5) % Neut # (Auto) 5.1 (1.4-5.7) K/uL Lymph # (Auto) 1.8 (0.6-2.4) K/uL [place] # (Auto) 0.7 (0.0-0.8) K/uL Eos # (Auto) 0.3 (0.0-0.7) K/uL Baso # (Auto) 0.0 (0.0-0.1) K/uL Nucleated RBC % 0.0 /100WBC Nucleated RBCs # 0 K/uL Sodium 139 (136-148) mmol/L Potassium 4.0 (3.5-5.1) mmol/L Chloride 104 (98-107) mmol/L Carbon Dioxide 26.4 (21.0-32.0) mmol/L BUN 21 H (7.0-18.0) mg/dL Creatinine 1.0 (0.8-1.3) mg/dL Est Cr Clr Drug Dosing 95.70 mL/min Estimated GFR (MDRD) > 60.0 ml/min Glucose 89 (74-106) mg/dL Calcium 8.7 (8.5-10.1) mg/dL Vancomycin Trough 10.5 H (5.0-10.0) ug/mL Result Diagrams: 06/22/21 05:28 06/22/21 05:28 Min Results Last 24 hrs: Microbiology 06/18/21 17:20 Miscellaneous Reference Culture - Final Wound - Knee, Right Staphylococcus Aureus Gram Stain - Final 06/18/21 17:32 Aerobic Blood Culture - Preliminary Blood - Venous NO GROWTH AFTER 3 DAYS Anaerobic Blood Culture - Preliminary NO GROWTH AFTER 3 DAYS 06/18/21 17:20 Aerobic Blood Culture - Preliminary Blood - Venous - Lab Draw NO GROWTH AFTER 3 DAYS Anaerobic Blood Culture - Preliminary NO GROWTH AFTER 3 DAYS Sepsis Event Note - Evaluation Sepsis Screening Result: No Definite Risk - Focused Exam Vital Signs: Vital Signs Temp Pulse Resp BP Pulse Ox 06/22/21 11:31 96.8 F L 67 20 113/55 L 98 06/22/21 07:54 97.9 F 61 20 116/53 L 97 06/22/21 04:05 97.5 F 76 96 H 105/56 L 95 Consult PN Assessment/Plan (1) Infection of right knee SNOMED Code(s): 862092620, 169651779 Code(s): M00.9 - PYOGENIC ARTHRITIS, UNSPECIFIED Priority: High Current Visit: Yes (2) Cellulitis SNOMED Code(s): 921542983 Code(s): L03.90 - CELLULITIS, UNSPECIFIED Priority: High Current Visit: Yes Qualifiers: Site of cellulitis: extremity Site of cellulitis of extremity: lower extremity Laterality: right Qualified Code(s): L03.115 - Cellulitis of right lower limb Problem List Initiated/Reviewed/Updated: Yes Plan: I recommend a CT scan of his right knee to look for deep tissue involvement. My concern is this is going to extend down to the joint and I think it would be best served by orthopedic evaluation and treatment, along with the possibility of both plastic surgery consultation and infectious disease consultation.
[2021-06-22] MEDS ORDERED: Iopamidol 755 MG/ML 500 ML Multipack Bottle IVPUSH STA (17:41)
--- NOTE | 2021-06-22 20:58 | CT ---
INDICATION: Wound. Cellulitis. COMPARISON: 06/18/2021 radiograph. TECHNIQUE: CT right knee with contrast. 100 cc IV Isovue 370. FINDINGS: Skin thickening, subcutaneous edema and fluid which can be seen with cellulitis. No acute fracture. Alignment is within normal limits. Joint spaces are maintained. No osteolysis or other specific findings of osteomyelitis. No drainable fluid collection. Muscle volume is within normal limits. No lytic or blastic lesion. IMPRESSION: 1. Skin thickening and subcutaneous edema which can be seen with cellulitis. 2. No specific evidence of osteomyelitis. No evidence of abscess. Please note that all CT scans at this facility use dose modulation, iterative reconstruction, and/or weight-based dosing when appropriate to reduce radiation dose to as low as reasonably achievable. Dictated by Richard Hamlin MD @ 06/22/2021 8:57:[address] Richard Hamlin @ Jun 22 2021 8:57PM
[2021-06-22] MEDS: Enoxaparin 40 MG/0.4 ML Syringe SUBCUT SCH (23:38)
[2021-06-23] MEDS: Piperacillin/Tazobactam 3.375 GM in Sodium Chloride 0.9% 50 ML IV SCH (05:19)
[2021-06-23 06:44] LABS: BLOOD UREA NITROGEN,BUN 24 mg/dL (7.0-18.0); CARBON DIOXIDE,CO2 25.4 mmol/L (21.0-32.0); CHLORIDE,CL 106 mmol/L (98-107); GLUCOSE RANDOM 88 mg/dL (74-106); SODIUM,NA 140 mmol/L (136-148)
[2021-06-23] MEDS ORDERED: Sulfamethoxazole/Trimethoprim 800-160 MG Tab PO ONE (10:25)
--- NOTE | 2021-06-23 10:28 | PCM.DCSUM1 ---
Discharge Summary - Hospital Course Brief History: 30 yo male who presents to the ED with rash on his knee. His rash started seven days ago. It started above his knee and has since spread all the way around his knee and down his lower leg. He reports some clear dranaing from a wound above his knee. He denies any fevers, knee pain, or chills. Diagnosis: Stroke: No - Discharge Data Discharge Date: 06/23/21 Discharge Disposition: Home, Self-Care 01 Condition: Good - Referral to Home Health Primary Care Physician: PCP None - Discharge Diagnosis/Problem(s) (1) Cellulitis SNOMED Code(s): 691740767 ICD Code: L03.90 - CELLULITIS, UNSPECIFIED Status: Acute Priority: High Current Visit: Yes Qualifiers: Site of cellulitis: extremity Site of cellulitis of extremity: lower extremity Laterality: right Qualified Code(s): L03.115 - Cellulitis of right lower limb (2) Carbuncle SNOMED Code(s): 447472934 ICD Code: L02.93 - CARBUNCLE, UNSPECIFIED Status: Acute Current Visit: Yes - Patient Summary/Data Consults: Consultations 06/22/21 10:53 Consult to Wound Care Services [CONS] Routine 06/22/21 15:01 Consult to Physician [CONS] Routine Hospital Course: Admission diagnoses Cellulitis right knee Discharge diagnosis Cellulitis with abscess right knee Chon was admitted secondary to cellulitis to right knee and rash with mild purulence noted. On arrival he was noted to have leukocytosis. He was treated with vancomycin and Zosyn knee x-ray was obtained on admission that revealed no acute osseous injuries or abnormalities but did notice moderate to severe soft tissue swelling in the anterior knee. Knee ultrasound also obtained in the ER due to the concern of possible septic arthritis. Patient continued to have good range of motion of his knee without any significant pain. Bedside ultrasound performed showed no concern for fluid collection or underlying abscess. Patient slowly and steadily improved wound did open and have purulent drainage wound culture was obtained which returned today MSSA. Blood cultures have been negative. White count today is normal patient has been afebrile. Wound care nurse consulted yesterday for possible bedside debridement due to mild bullae that had opened and drainaed and left some peeling skin. She recommended general surgery consult. Dr. Epperson was consulted felt CT of the knee should be performed to ensure patient does not have any type of septic arthritis or an involvement of the knee joint. CT was obtained which shows continued cellulitis and skin thickening of the anterior knee no acute fractures no involvement of the joint spaces are well-maintained with no osteomyelitis noted. This morning mild purulence noted to opening of anterior knee sore. No fluctuance noted per se but patient did have purulent matter near opening of sore. This was manipulated out and patient had significant relief once this large piece of purulent matter was removed. Wound bed appeared clean was cleansed with wound wash and packed with quarter inch iodoform packing. Patient tolerated procedure well and patient monitored how wound care was performed. Patient feels as though he would be able to perform this at home along with keeping site clean with warm soapy water daily and repacking. Patient will be discharged home today with Bactrim DS 1 tab twice daily for 5 more days to complete 10-day course. Patient counseled on side effects of Bactrim along with symptoms to mo nitor if infection were to be worsening. These include fevers chills worsening pain or drainage from site. He was counseled on the type of wound healing we would want with packing to keep site open so that it can heal from the inside out instead of closing over top and creating a pocket patient verbalized understanding of this. 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 Patient will have follow-up next week with PCP to ensure continued improvement. Wound care instructions provided. Patient to be discharged home today return to the ER clinic if concerns should arise sooner. - Patient Instructions Diet: Regular Diet as Tolerated Activity: No Strenuous Activities, Rest and Relax Today Showering/Bathing: May Shower Notify Provider of: Fever, Increased Pain, Swelling and Redness, Drainage, Nausea and/or Vomiting Other/Special Instructions: Change packing to Right knee daily, cleanse well with soapy water. Re-pack to keep wound open until it closes from the bottom up. Cover wound with gauze and secure with tape or stockinette. If drainage increases, pain worsens, fever returns please return to ED or clinic for evaluation. - Discharge Plan *PRESCRIPTION DRUG MONITORING PROGRAM REVIEWED*: Not Applicable *COPY OF PRESCRIPTION DRUG MONITORING REPORT IN PATIENT MIMI: Not Applicable Prescriptions/Med Rec: Sulfamethoxazole/Trimethoprim [Bactrim Ds Tablet] 1 each PO BID #10 tablet Home Medications: Home Meds Acetaminophen [Tylenol] 650 mg PO Q6H PRN tablet 06/23/21 [Rx] Sulfamethoxazole/Trimethoprim [Bactrim Ds Tablet] 1 each PO BID #10 tablet 06/23/21 [Rx] Oxygen Therapy Mode: Room Air Patient Handouts: Cellulitis, Adult, [id number], How to Change Your Wound Dressing, [id number], Sulfamethoxazole; Trimethoprim, SMX-TMP tablets Referrals: Batool Chandra NP [Nurse Practitioner] - 06/30/21 10:00 am - Discharge Summary/Plan Comment DC Time >30 min.: Yes Total # of Minutes for Discharge Time: 35 counseling on wound care management, medication and symptoms that warrant return to clinic or ED - Patient Data Vitals - Most Recent: Last Vital Signs Temp 98.3 F 06/23/21 08:39 Pulse 62 06/23/21 08:39 Resp 16 06/23/21 08:39 BP 112/61 06/23/21 08:39 Pulse Ox 95 06/23/21 08:39 Weight - Most Recent: 78.426 kg I&O - Last 24 hours: Intake & Output 06/22/21 06/23/21 06/23/21 22:59 06:59 14:59 Intake Total 600 1200 Balance 600 1200 Lab Results - Last 24 hrs: Laboratory Results - last 24 hr 06/23/21 06/23/21 Range/Units 05:40 05:40 WBC 8.50 (4.0-11.0) K/uL RBC 4.50 (4.50-5.90) M/uL Hgb 14.0 (13.0-17.0) g/dL Hct 40.4 (38.0-50.0) % MCV 89.8 (80.0-98.0) fL MCH 31.1 (27.0-32.0) pg MCHC 34.7 (31.0-37.0) g/dL RDW Std Deviation 39.5 (28.0-62.0) fl RDW Coeff of Talha 12 (11.0-15.0) % Plt Count 214 (150-400) K/uL MPV 9.90 (7.40-12.00) fL Neut % (Auto) 66.0 (48.0-80.0) % Lymph % (Auto) 22.8 (16.0-40.0) % [place] % (Auto) 8.5 (0.0-15.0) % Eos % (Auto) 2.5 (0.0-7.0) % Baso % (Auto) 0.2 (0.0-1.5) % Neut # (Auto) 5.6 (1.4-5.7) K/uL Lymph # (Auto) 1.9 (0.6-2.4) K/uL [place] # (Auto) 0.7 (0.0-0.8) K/uL Eos # (Auto) 0.2 (0.0-0.7) K/uL Baso # (Auto) 0.0 (0.0-0.1) K/uL Nucleated RBC % 0.0 /100WBC Nucleated RBCs # 0 K/uL Sodium 140 (136-148) mmol/L Potassium 4.0 (3.5-5.1) mmol/L Chloride 106 (98-107) mmol/L Carbon Dioxide 25.4 (21.0-32.0) mmol/L BUN 24 H (7.0-18.0) mg/dL Creatinine 1.0 (0.8-1.3) mg/dL Est Cr Clr Drug Dosing 95.70 mL/min Estimated GFR (MDRD) > 60.0 ml/min Glucose 88 (74-106) mg/dL Calcium 8.9 (8.5-10.1) mg/dL VINEET Results - Last 24 hrs: Microbiology 06/18/21 17:32 Aerobic Blood Culture - Preliminary Blood - Venous NO GROWTH AFTER 4 DAYS Anaerobic Blood Culture - Preliminary NO GROWTH AFTER 4 DAYS 06/18/21 17:20 Aerobic Blood Culture - Preliminary Blood - Venous - Lab Draw NO GROWTH AFTER 4 DAYS Anaerobic Blood Culture - Preliminary NO GROWTH AFTER 4 DAYS 06/18/21 17:20 Miscellaneous Reference Culture - Final Wound - Knee, Right Staphylococcus Aureus Gram Stain - Final Med Orders - Current: Current Medications Acetaminophen (Acetaminophen 325 Mg Tab) 650 mg PO Q6H PRN PRN Reason: Pain (mild 1-3) Last Admin: 06/19/21 23:50 Dose: 650 mg Documented by: Enoxaparin Sodium (Enoxaparin 40 Mg/0.4 Ml Syringe) 40 mg SUBCUT Q24H ALBERTO Last Admin: 06/22/21 23:38 Dose: 40 mg Documented by: Oxycodone HCl (Oxycodone 5 Mg Tab) 5 mg PO Q4H PRN PRN Reason: Pain Trimethoprim/Sulfamethoxazole (Sulfamethoxazole/Trimethoprim 800-160 Mg Tab) 1 tab PO ONETIME ONE Stop: 06/23/21 10:26 Discontinued Medications Acetaminophen (Acetaminophen 500 Mg Tab) 1,000 mg PO ONETIME ONE Stop: 06/18/21 19:30 Last Admin: 06/18/21 20:03 Dose: 1,000 mg Documented by: Hydromorphone HCl (Hydromorphone 2 Mg/Ml Syringe) 0.5 mg IVPUSH ONETIME ONE Stop: 06/18/21 19:30 Last Admin: 06/18/21 19:59 Dose: 0.5 mg Documented by: Sodium Chloride (Normal Saline) 1,000 mls @ 999 mls/hr IV BOLUS ONE Stop: 06/18/21 18:03 Last Admin: 06/18/21 17:09 Dose: 999 mls/hr Documented by: Ceftriaxone Sodium/Dextrose 1 (gm/ Premix) 50 mls @ 100 mls/hr IV ONETIME ONE Stop: 06/18/21 17:36 Last Admin: 06/18/21 17:46 Dose: Not Given Documented by: Piperacillin Sod/Tazobactam (Sod 3.375 gm/ Sodium Chloride) 50 mls @ 100 mls/hr IV ONETIME ONE Stop: 06/18/21 17:42 Last Admin: 06/18/21 17:39 Dose: 100 mls/hr Documented by: Vancomycin HCl 1 gm/ Sodium (Chloride) 250 mls @ 166 mls/hr IV ONETIME ONE Stop: 06/18/21 18:43 Last Admin: 06/18/21 17:39 Dose: 166 mls/hr Documented by: Sodium Chloride (Normal Saline) 1,000 mls @ 999 mls/hr IV STAT ONE Stop: 06/18/21 20:40 Last Admin: 06/18/21 20:04 Dose: 999 mls/hr Documented by: Piperacillin Sod/Tazobactam (Sod 3.375 gm/ Sodium Chloride) 50 mls @ 100 mls/hr IV Q6H [facility] Last Admin: 06/23/21 05:19 Dose: 100 mls/hr Documented by: Vancomycin HCl 1.25 gm/ Premix 250 mls @ 250 mls/hr IV Q8H [facility] Last Admin: 06/19/21 03:00 Dose: 250 mls/hr Documented by: Vancomycin HCl 1.25 gm/ Sodium (Chloride) 250 mls @ 250 mls/hr IV Q8H [facility] Last Admin: 06/23/21 01:30 Dose: 250 mls/hr Documented by: Iopamidol (Iopamidol 755 Mg/Ml 500 Ml Multipack Bottle) 100 ml IVPUSH ONETIME STA Stop: 06/22/21 17:42 Last Admin: 06/22/21 17:42 Dose: 100 ml Documented by: Ketorolac Tromethamine (Ketorolac 30 Mg/Ml Sdv) 30 mg IVPUSH ONETIME ONE Stop: 06/18/21 19:30 Last Admin: 06/18/21 19:56 Dose: 30 mg Documented by: Vancomycin HCl (Pharmacy To Dose - Vancomycin) 1 dose .XX ASDIRECTED [facility]
== END 2021-06-23 12:22 | disposition home or self-care (01) | DRG 603 ==
LOC: MW.ED 16:21 → MW.MS 20:12
PROVIDERS: ADMIT Internal Medicine; ATTEND Internal Medicine
DX: L03.115 Cellulitis of right lower limb (principal); L02.93 Carbuncle, unspecified; Z20.822 Contact with and (suspected) exposure to COVID-19
CPT/HCPCS: 36415; 73562-26-RT; 73562-RT; 73701-26-RT; 73701-RT; 80048; 80053; 80202; 83605; 85025; 85652; 86140; 87040; 87070; 87077; 87147; 87186; 87205; 96365; 96366; 96367; 96375; 99221; 99231; 99232; 99239; 99284; 99285-25; A9270-GY; J1170; J1650; J1885; J2543; J3370; J7030; J7050; Q9967; U0002